=== PATIENT | female | born 1955 | race Asian ===

== ENCOUNTER → 2016-05-15 | Outpatient (CLI) | payer OTHER ==
[2016-05-15 18:14] LABS: ALBUMIN 4.1 GM/DL (3.2-5.2); ALBUMIN/GLOBULIN RATIO 1.03 (1.00-1.93); ALKALINE PHOSPHATASE 106 U/L (45-117); ALT/SGPT 20 U/L (12-78); ANION GAP 10 MEQ/L (8-16); AST/SGOT 21 U/L (15-37); BILIRUBIN,TOTAL 0.6 MG/DL (0.2-1.0); BLOOD UREA NITROGEN 21 MG/DL (7-18); CALCIUM LEVEL 8.8 MG/DL (8.5-10.1); CARBON DIOXIDE LEVEL 26 MEQ/L (21-32); CHLORIDE LEVEL 106 MEQ/L (98-107); CHOLESTEROL LEVEL 183 MG/DL (<200); CREATININE FOR GFR 0.61 MG/DL (0.55-1.02); GLOMERULAR FILTRATION RATE > 60.0 (>51); GLUCOSE, FASTING 98 MG/DL (70-105); POTASSIUM SERUM 4.1 MEQ/L (3.5-5.1); SODIUM LEVEL 142 MEQ/L (136-145); TOTAL PROTEIN 8.1 GM/DL (6.4-8.2); TRIGLYCERIDES LEVEL 249 MG/DL (<150)
[2016-05-15 19:12] LABS: BASO % 0.9 % (0.0-1.0); EOS # 0.1 K/mm3 (0.0-0.50); EOS % 2.4 % (0.0-3.0); LARGE UNSTAINED CELL # 0.2 K/mm3 (0.0-0.4); LYMPH # 1.9 K/mm3 (1.5-4.5); LYMPH % 35.9 % (24.0-44.0); MEAN CORPUSCULAR HEMOGLOBIN 30.2 pg (27.0-33.0); MEAN CORPUSCULAR VOLUME 94.3 fl (80.0-96.0); MONO # 0.3 K/mm3 (0.0-0.8); MONO % 4.8 % (0.0-5.0); NEUTROPHILS # 2.9 K/mm3 (1.8-7.7); PLATELET COUNT, AUTOMATED 294 k/mm3 (150-450); RED CELL DISTRIBUTION WIDTH 12.6 % (11.5-14.5); WHITE BLOOD COUNT 5.4 K/mm3 (4.0-10.0)
== END ==
LOC: M WUC 11:09
PROVIDERS: ATTEND Physician Assistant Medical
DX: E55.9 Vitamin D deficiency, unspecified (principal); I10 Essential (primary) hypertension

== ENCOUNTER → 2016-10-30 | Outpatient (REF) | payer OTHER | LOC: M LAB REF 13:08 | PROVIDERS: ATTEND Physician Assistant Medical | DX: Z12.4 Encounter for screening for malignant neoplasm of cervix (principal) ==

== ENCOUNTER 2017-03-07 13:23 | Day surgery (SDC) | payer OTHER ==
[~2017-03-07] VITALS: Ht 157.5 cm; Wt 63.6 kg
[2017-03-07] MEDS ORDERED: FISH100049 PO (13:33)
[2017-03-07] MEDS ORDERED: ASPI81TA85 PO (13:33)
[2017-03-07] MEDS ORDERED: HYDR25TAB PO (13:33)
[2017-03-07] MEDS ORDERED: VITA1CAP40 PO (13:33)
[2017-03-07] MEDS ORDERED: VALS1TAB47 PO (13:33)
[2017-03-07] MEDS ORDERED: CALC600T57 PO (13:34)
[2017-03-07] MEDS ORDERED: MORPHINE 2 MG/ML 1ML SYRINGE IV ONE (14:00)
[2017-03-07] MEDS ORDERED: ONDANSETRON 4MG/2ML VIAL (J2405) IV ONE (14:00)
[2017-03-07] MEDS ORDERED: NS 1,000 ML IV ONE (14:00)
[2017-03-07 14:44] LABS: BASO % 0.2 % (0.0-1.0); IMMATURE GRANULOCYTE % 0.3 % (0-0); LYMPH # 0.9 10^3/uL (1.5-4.5); LYMPH % 6.3 % (24.0-44.0); MEAN CORPUSCULAR HEMOGLOBIN 30.3 pg (27.0-33.0); MEAN CORPUSCULAR HGB CONC 33.5 g/dl (32.0-36.5); MEAN CORPUSCULAR VOLUME 90.5 fl (80.0-96.0); MONO # 0.4 10^3/uL (0.0-0.8); MONO % 2.5 % (0.0-5.0); NEUTROPHILS # 13.3 10^3/uL (1.8-7.7); NEUTROPHILS % 90.7 % (36.0-66.0); PLATELET COUNT, AUTOMATED 305 10^3/uL (150-450); RED CELL DISTRIBUTION WIDTH 13.1 % (11.5-14.5); WHITE BLOOD COUNT 14.6 10^3/uL (4.0-10.0)
--- NOTE | 2017-03-07 15:01 | REP ---
ACUTE ABDOMINAL SERIES: 03/07/2017 CLINICAL HISTORY: Abdominal pain. FINDINGS: PA CHEST: Comparison 02/27/2003. The lung he are well inflated. There is no infiltrate, effusion, atelectasis or mass. The heart, mediastinal and hilar contours are normal. The airway and aorta are intact. Bony thorax shows no focal lesion. No aortic aneurysm. No free air under the diaphragm. FLAT UPRIGHT ABDOMEN: There is a nonspecific gas pattern without dilated loops, obstruction, mass or free air. Scattered stool and gas in the colon. No dilated small bowel loops. No mass. In the right upper quadrant, superimposed to a posterior 12th rib, overlying some bowel gas and stool, there is a density which could be bowel content, calcification or rib lesion. It also be costal cartilage calcification. Marginal osteophytes and syndesmophytes throughout the lumbar spine. SI joints, sacral ala intact. There is some degenerative changes in the hips. IMPRESSION: 1. Nonspecific gas pattern without obstruction, mass, free air or air-fluid levels. Bones show some degenerative changes spine and hips without acute finding. 2. A possible calcific density in the right upper quadrant at the level of superior endplate of L1 to the right of midline. This calcific density could be in the rib, bowel content, costal cartilage calcification or within the kidney. 3. Degenerative changes hips and spine. Signed by Jonathan John MD 03/07/2017 07:41 P
[2017-03-07 15:11] LABS: ANION GAP 13 MEQ/L (8-16); BLOOD UREA NITROGEN 16 MG/DL (7-18); CALCIUM LEVEL 9.4 MG/DL (8.8-10.2); CARBON DIOXIDE LEVEL 23 MEQ/L (21-32); CHLORIDE LEVEL 103 MEQ/L (98-107); GLOMERULAR FILTRATION RATE > 60.0 (>45); GLUCOSE, FASTING 109 MG/DL (80-110); POTASSIUM SERUM 3.1 MEQ/L (3.5-5.1); SODIUM LEVEL 139 MEQ/L (136-145)
--- NOTE | 2017-03-07 15:53 | REP ---
PELVIC ENDOVAGINAL PROBE ULTRASOUND: 03/07/2017. Clinical history: Left lower quadrant pain. Comparison: 07/29/2007. Findings: Transabdominal images show bladder nearly empty. Endovaginal probe images also performed. The uterus is absent and the vaginal cuff intact without visible mass. There is no fluid in the pelvis nor evidence of adnexal mass or ovarian tissue visible on these images on either side of the pelvis with transabdominal or endovaginal probes. Impression: 1. Status post hysterectomy with the vaginal cuff intact. No pelvic free fluid or mass. No adnexal tissue, mass or visible ovaries on transabdominal and endovaginal probes. Correlate with surgical history. Signed by Jonathan John MD 03/07/2017 07:45 P
--- NOTE | 2017-03-07 17:18 | REP ---
CT of the abdomen pelvis without IV or bowel contrast: There are no comparisons. There are no renal or ureteral calculi. There are no bladder calculi. There is mild left hydronephrosis. There is no hydroureter or perinephric stranding. There is no right hydronephrosis. The visualized lung he are unremarkable. The hepatic parenchyma is homogeneous except for a small cyst. The gallbladder, pancreas and the spleen are unremarkable. The adrenals, abdominal aorta, bowel and mesentery are unremarkable except for occasional sigmoid colon diverticula without diverticulitis. The appendix is elongated and distended measuring up to 10 mm transverse diameter. There are at least for appendicoliths. There is mild periappendiceal phlegmon. Findings are compatible with acute appendicitis. There is no periappendiceal abscess. Pelvis There is a hysterectomy. Vaginal cuff and adnexa are unremarkable. The bladder is unremarkable. There is no adenopathy or ascites. Impression: There is mild left hydronephrosis, however, there are no left renal or ureteral calculi. No bladder calculi. The mild hydronephrosis may be from a UPJ stricture. However, there are findings compatible with acute appendicitis. There are least four appendicoliths, appendiceal distension and mild periappendiceal phlegmon. Signed by Sammy Wesley MD 03/07/2017 05:10 P
[2017-03-07] MEDS ORDERED: ASPI1TAB PO (17:54)
[2017-03-07] MEDS ORDERED: VITA100066 PO (18:02)
[2017-03-07] MEDS ORDERED: BUPIVACAINE/EPIN 0.5% 30 ML VIAL As Ordered ONE (18:12)
[2017-03-07] MEDS ORDERED: ZOSYN 3.375 GM VIAL (J2543) As Ordered ONE (18:12)
[2017-03-07] MEDS: LR 1,000 ML IV SCH (18:26)
[2017-03-07] MEDS ORDERED: ONDANSETRON 4MG/2ML VIAL (J2405) IV PRN ×2 (18:30→19:30)
[2017-03-07] MEDS ORDERED: ACETAMINOPHEN TAB 650MG DOSE (2X325MG) PO PRN (18:30)
[2017-03-07] MEDS ORDERED: MORPHINE 2 MG/ML 1ML SYRINGE IV PRN (18:30)
[2017-03-07] MEDS ORDERED: NORCO, ANEXSIA 5/325MG TABLET (HYDROcodone/ACETAMINOPHEN) PO PRN (18:30)
[2017-03-07] MEDS ORDERED: KETOROLAC 30 MG/ML VIAL (J1885) IV PRN (18:30)
[2017-03-07] MEDS ORDERED: ROCURONIUM BROMIDE 50 MG/5 ML VIAL As Ordered ONE (18:52)
[2017-03-07] MEDS ORDERED: NEOSTIGMINE 10 MG/10 ML VIAL (J2710) As Ordered ONE (18:52)
[2017-03-07] MEDS ORDERED: LIDOCAINE 2% INJ 100 MG/5 ML SDV (FOR ANES.) As Ordered ONE (18:52)
[2017-03-07] MEDS ORDERED: fentaNYL 250 MCG/5 ML INJECTION (J3010) As Ordered ONE (18:52)
[2017-03-07] MEDS ORDERED: dexameTHASONE 4 MG/ML 1ML VIAL (J1100) As Ordered ONE (18:52)
[2017-03-07] MEDS ORDERED: KETOROLAC 60 MG/2 ML VIAL (J1885) As Ordered ONE (18:52)
[2017-03-07] MEDS ORDERED: SUCCINYLCHOLINE 100 MG/5 ML SYRINGE (J0330) As Ordered ONE (18:52)
[2017-03-07] MEDS ORDERED: PROPOFOL 200 MG/20 ML VIAL As Ordered ONE (18:52)
[2017-03-07] MEDS ORDERED: GLYCOPYRROLATE INJ 0.2 MG/ML 2 ML VIAL As Ordered ONE (18:52)
[2017-03-07] MEDS ORDERED: MIDAZOLAM INJ 2 MG/2 ML VIAL (J2250) As Ordered ONE (18:52)
[2017-03-07] MEDS ORDERED: ONDANSETRON 4MG/2ML VIAL (J2405) As Ordered ONE (18:52)
[2017-03-07] MEDS ORDERED: PHENYLephrine HCL 500 MCG/5 ML (100MCG/ML) SYRINGE (J2370) As Ordered ONE (18:55)
--- NOTE | 2017-03-07 19:00 | HPE ---
DATE OF ADMISSION: 03/07/2017 CHIEF COMPLAINT: Right lower quadrant pain. HISTORY OF PRESENT ILLNESS: The patient is a 57-year-old female who developed sudden onset of left lower quadrant abdominal pain early this morning. The pain started to move over towards the right side in the afternoon. She went to her primary around 1:00 this afternoon. Once she was there, they felt that she should be seen in the emergency room so they sent her to the emergency room. In the ER she had a CT done which showed signs of a dilated thickened appendix with surrounding phlegmon formation as well as some appendicoliths within it. She also had a slightly elevated white count up to over 14,000, so I was called to evaluate. She claims a little bit of dry heaving, no other emesis. No fevers reported. No recent travel or trauma. No recent illnesses. PAST MEDICAL HISTORY: Positive for hypertension. PAST SURGICAL HISTORY: Hysterectomy. ALLERGIES: None. HOME MEDICATIONS: - valsartan - hydrochlorothiazide - [id number] baby aspirin - vitamin D and calcium SOCIAL HISTORY: Denies drug, alcohol, tobacco abuse. FAMILY HISTORY: Noncontributory. REVIEW OF SYSTEMS: Pertinent positives negative except as stated in the HPI. PHYSICAL EXAMINATION: General: Alert and oriented times three. No acute stress. Vitals: Temperature 98.8, pulse 95, respirations 16, blood pressure 156/88, pulse oximetry 100% on room air. HEENT: Pupils equal round react to light and accommodation. Heart: S1, S2 regular rate and rhythm, Lungs clear to auscultation bilaterally. Abdomen: Soft, tender to palpation right lower quadrant. Localized guarding, no rebounding or rigidity. Bowel sounds positive. Extremities: No clubbing, cyanosis or edema. LABORATORY DATA: White count 14.6, hemoglobin 13.7, platelets 305, potassium 3.1, creatinine 0.6. IMAGING STUDIES: CT abdomen and pelvis shows mild left hydronephrosis. However, no signs of left renal or ureteral calculi. No bladder calculi. There is also signs of acute appendicitis with elongated and dilated appendix up to 10 mm in diameter with at least four appendicoliths within it with some mild periappendiceal phlegmon formation. No signs of periappendiceal abscess. ASSESSMENT/PLAN: The patient is 63-year-old female with signs and symptoms consistent with acute appendicitis. Recommendation to proceed with laparoscopic, possible open appendectomy. Risks, benefits of procedure not limited to but including bleeding, infection, hernia formation, damage to surrounding structures, need further surgery were discussed in detail with the patient and informed consent was obtained and procedure was planned urgently for this evening. Postoperatively she will be kept in the hospital on the floor to monitor for fevers and elevated white count overnight. As long as the appendix is not perforated and she is afebrile for 24 hours then she will be discharged home to followup with me postoperatively.
[2017-03-07] MEDS ORDERED: LR 1,000 ML IV SCH (19:30)
[2017-03-07] MEDS ORDERED: PERCOCET 5MG/325MG TAB PO PRN (19:30)
[2017-03-07] MEDS ORDERED: fentaNYL 100 MCG/2 ML INJECTION (J3010) IV PRN (19:30)
[2017-03-07 20:30] VITALS: BP 134/81
[2017-03-07 21:00] VITALS: BP 131/79
[2017-03-07] MEDS: HEPARIN SOD (PORCINE) 5000 UNITS/ML VIAL SC SCH (21:11)
[2017-03-07] MEDS: SENOKOT S TAB PO SCH (21:11)
[2017-03-07 22:00] VITALS: BP 122/74
[2017-03-07 23:00] VITALS: BP 109/69
[2017-03-07] MEDS: PIPERACILLIN/TAZOBACTAM SOD 3.375 GM in APPROPRIATE DILUENT 1 EA IV SCH (23:34)
[2017-03-08] VITALS: BP 102/63
[2017-03-08 01:00] VITALS: BP 101/64
[2017-03-08] MEDS: LR 1,000 ML IV SCH (01:31)
[2017-03-08 04:00] VITALS: BP 95/61
[2017-03-08] MEDS: PIPERACILLIN/TAZOBACTAM SOD 3.375 GM in APPROPRIATE DILUENT 1 EA IV SCH (05:27)
[2017-03-08] MEDS: HEPARIN SOD (PORCINE) 5000 UNITS/ML VIAL SC SCH (05:27)
[2017-03-08 07:50] LABS: MEAN CORPUSCULAR HEMOGLOBIN 31.1 pg (27.0-33.0); MEAN CORPUSCULAR HGB CONC 34.4 g/dl (32.0-36.5); MEAN CORPUSCULAR VOLUME 90.4 fl (80.0-96.0); PLATELET COUNT, AUTOMATED 258 10^3/uL (150-450); RED CELL DISTRIBUTION WIDTH 13.1 % (11.5-14.5); WHITE BLOOD COUNT 11.3 10^3/uL (4.0-10.0)
[2017-03-08 08:00] VITALS: BP 107/64
[2017-03-08 08:09] VITALS: BP 107/64
[2017-03-08] MEDS: SENOKOT S TAB PO SCH (08:09)
[2017-03-08 08:19] LABS: ANION GAP 11 MEQ/L (8-16); BLOOD UREA NITROGEN 13 MG/DL (7-18); CALCIUM LEVEL 8.4 MG/DL (8.8-10.2); CARBON DIOXIDE LEVEL 23 MEQ/L (21-32); CHLORIDE LEVEL 107 MEQ/L (98-107); CREATININE FOR GFR 0.62 MG/DL (0.55-1.02); GLOMERULAR FILTRATION RATE > 60.0 (>45); GLUCOSE, FASTING 135 MG/DL (80-110); POTASSIUM SERUM 3.6 MEQ/L (3.5-5.1); SODIUM LEVEL 141 MEQ/L (136-145)
[2017-03-08] MEDS ORDERED: NORCOTAB PO (08:42)
[2017-03-08] MEDS ORDERED: VALSARTAN 80 MG TAB (DIOVAN) PO SCH (09:00)
[2017-03-08] MEDS ORDERED: hydroCHLOROthiazide 25 MG TAB PO SCH (09:00)
--- NOTE | 2017-03-08 19:02 | DSES ---
DATE OF ADMISSION: 03/07/2017 DATE OF DISCHARGE: 03/08/2017 ADMISSION DIAGNOSIS: Acute appendicitis. DISCHARGE DIAGNOSIS: Acute appendicitis. HOSPITAL COURSE: Patient is a 61-year-old female who presented to the emergency room on March 07 with signs of acute appendicitis. She was taken the operating room for urgent appendectomy last evening. Postoperatively she was doing well. Her abdominal pain was significantly improved immediately postoperative. She had no problems with nausea, vomiting, fevers, or chills overnight. She has been up ambulating in the halls and urinating appropriately, tolerating diet. This morning her labs are improving. She has been afebrile. PLAN: Discharge home today just with a pain pill. She will followup me in the office in 2 weeks. Okay to shower when she returns home. No soaking her incisions for 5 days. No lifting, pushing, or pulling more than 20 pounds for the next 2 weeks. All questions were answered, and she has our office number to call if she has any other questions.
--- NOTE | 2017-03-09 09:08 | RO ---
DATE OF PROCEDURE: 03/07/2017 PREOPERATIVE DIAGNOSIS: Acute appendicitis. POSTOPERATIVE DIAGNOSIS: Acute appendicitis. PROCEDURE: Laparoscopic appendectomy. SURGEON: Sammy Crooks DO AUTO PORTER: None. ANESTHESIA: General. ESTIMATED BLOOD LOSS: 5 mL. COMPLICATIONS: None. INDICATIONS FOR PROCEDURE: Patient is a 61-year-old female who presented to the emergency room with sudden onset of abdominal pain that occurred this morning. The pain was in the right lower quadrant. She came to emergency room and was found to have an elevated white count, over 14,000, as well as a CT findings consistent with acute appendicitis. Recommendation was to proceed with laparoscopic possible open appendectomy. Risks and benefits of the procedure, not limited but including bleeding, infection, hernia formation, damage to surrounding structures, need for further surgery, were discussed in detail with the patient. Informed consent was obtained and procedure was planned. PROCEDURE: Patient was brought back to operating room 3. After sufficient sedation the abdomen was sterilely prepped and draped. Next, a time out was done to confirm proper patient and proper procedure. Following that, a 5 mm incision was made in the left upper quadrant, Veress needle inserted and the abdomen was insufflated to 15 mmHg. Next, a 5 mm OptiView port was used to gain access to the abdomen in the left upper then an 8 mm port placed supraumbilically and another 5 mm port midline suprapubically. Next, the omentum was moved off of the cecum. The appendix was easily identified. This was able to be elevated up in the air. The mesoappendix was carefully taken down using the ENSEAL until the base the appendix was reached. Once the base the appendix was reached it was ligated twice with PDS Endoloops and then amputated using he ENSEAL. The appendix then brought out through a 5 mm EndoCatch bag through the 8 mm port site. The abdomen was then examined one last time to confirm hemostasis. The abdomen was then desufflated. Skin incisions were closed with #4-0 Vicryl subcuticular sutures. The abdomen was cleaned and dried. Steri-Strips, 4x4 and tape were applied thus ending procedure. Dictation
== END 2017-03-08 10:05 | disposition home or self-care (01) ==
LOC: M ED 13:23 → M ED INP 17:45 → UNDOADMIN 17:45 → M SDC 18:00 → M PED 20:30 → M ED INP 20:30 → M PED 21:07 → M SDC 03-08 10:05 → UNDODISIN 03-08 10:05
PROVIDERS: ATTEND Surgery
DX: K35.80 Unspecified acute appendicitis (principal); I10 Essential (primary) hypertension; Z79.899 Other long term (current) drug therapy; Z79.82 Long term (current) use of aspirin; Z87.891 Personal history of nicotine dependence
CPT/HCPCS: 36415; 44970; 74022; 74176; 76830; 76856; 80048; 81001; 85025; 85027; 88304; 96361; 96365; 96372; 96375; 96376; 99284; J0330; J1100; J1885; J2250; J2370; J2405; J2543; J2710; J3010

== ENCOUNTER → 2017-05-16 | Outpatient (CLI) | payer OTHER ==
[2017-05-16 14:21] LABS: ANION GAP 10 MEQ/L (8-16); BLOOD UREA NITROGEN 19 MG/DL (7-18); CALCIUM LEVEL 9.1 MG/DL (8.8-10.2); CARBON DIOXIDE LEVEL 27 MEQ/L (21-32); CHLORIDE LEVEL 106 MEQ/L (98-107); CHOLESTEROL LEVEL 175 MG/DL (<200); CHOLESTEROL RISK RATIO 3.181 (<5); CREATININE FOR GFR 0.55 MG/DL (0.55-1.30); GLOMERULAR FILTRATION RATE > 60.0 (>45); GLUCOSE, FASTING 95 MG/DL (70-100); HDL CHOLESTEROL 55 MG/DL (>40); NON-HDL-C 120 MG/DL; SODIUM LEVEL 143 MEQ/L (136-145); TRIGLYCERIDES LEVEL 130 MG/DL (<150)
[2017-05-16 14:29] LABS: TOTAL 25(OH) VITAMIN D 80.1 NG/ML (30.0-100.0)
== END ==
LOC: M WUC 09:25
DX: I10 Essential (primary) hypertension (principal); E55.9 Vitamin D deficiency, unspecified

== ENCOUNTER → 2017-09-13 | Outpatient (REF) | payer OTHER ==
[2017-09-19 10:36] LABS: HPV LOW VOL RFLX Negative (Negative)
== END ==
LOC: M LAB REF 13:28
DX: Z01.419 Encounter for gynecological examination (general) (routine) without abnormal findings (principal)

== ENCOUNTER 2017-09-17 13:27 | Emergency (ER) | payer OTHER | END 2017-09-17 16:08 | disposition home or self-care (01) | LOC: M ED 13:27 | DX: Z04.1 Encounter for examination and observation following transport accident (principal); S20.312A Abrasion of left front wall of thorax, initial encounter; V43.52XA Car driver injured in collision with other type car in traffic accident, initial encounter; Y92.410 Unspecified street and highway as the place of occurrence of the external cause; Z88.8 Allergy status to other drugs, medicaments and biological substances; Z79.82 Long term (current) use of aspirin; Z79.899 Other long term (current) drug therapy | CPT/HCPCS: 71046 ==

== ENCOUNTER → 2018-04-19 | Outpatient (CLI) | payer OTHER ==
[~2018-04-19] MED LIST: ASPI1TAB PO; ASPI81TA85 PO; CALC600T57 PO; FISH100049 PO; HYDR25TAB PO; NORCOTAB PO; VALS1TAB47 PO; VITA100066 PO; VITA50005 PO
[2018-04-19 13:54] LABS: BASO % 0.5 % (0.0-1.0); EOS # 0.1 10^3/uL (0.0-0.50); EOS % 2.2 % (0.0-3.0); HEMATOCRIT 41.8 % (36.0-47.0); HEMOGLOBIN 13.4 g/dl (12.0-15.5); LYMPH # 2.4 10^3/uL (1.5-4.5); MEAN CORPUSCULAR HEMOGLOBIN 29.8 pg (27.0-33.0); MEAN CORPUSCULAR HGB CONC 32.1 g/dl (32.0-36.5); MEAN CORPUSCULAR VOLUME 92.9 fl (80.0-96.0); MONO # 0.3 10^3/uL (0.0-0.8); MONO % 4.5 % (0.0-5.0); NEUTROPHILS # 2.8 10^3/uL (1.8-7.7); NEUTROPHILS % 49.6 % (36.0-66.0); PLATELET COUNT, AUTOMATED 262 10^3/uL (150-450); WHITE BLOOD COUNT 5.6 10^3/uL (4.0-10.0)
[2018-04-19 14:23] LABS: ALBUMIN 3.5 GM/DL (3.2-5.2); ALT/SGPT 21 U/L (12-78); BILIRUBIN,TOTAL 0.4 MG/DL (0.2-1.0); BLOOD UREA NITROGEN 15 MG/DL (7-18); CALCIUM LEVEL 9.1 MG/DL (8.8-10.2); CARBON DIOXIDE LEVEL 25 MEQ/L (21-32); CHLORIDE LEVEL 106 MEQ/L (98-107); CHOLESTEROL LEVEL 161 MG/DL (<200); CHOLESTEROL RISK RATIO 3.156 (<5); GLOMERULAR FILTRATION RATE > 60.0 (>45); GLUCOSE, FASTING 87 MG/DL (70-100); HDL CHOLESTEROL 51 MG/DL (>40); LDL CHOLESTEROL 82 MG/DL (<100); NON-HDL-C 110 MG/DL; POTASSIUM SERUM 4.3 MEQ/L (3.5-5.1); SODIUM LEVEL 142 MEQ/L (136-145); TOTAL PROTEIN 7.4 GM/DL (6.4-8.2); TRIGLYCERIDES LEVEL 142 MG/DL (<150)
== END ==
LOC: M WUC 10:34
PROVIDERS: ATTEND Physician Assistant Medical
DX: I10 Essential (primary) hypertension (principal)

== ENCOUNTER → 2018-10-10 | Outpatient (REF) | payer OTHER ==
[~2018-10-10] MED LIST changes: -ASPI1TAB PO; +ASPI81TA26 PO; +HYDR-3715 PO; -NORCOTAB PO; -VALS1TAB47 PO; +VALS1TAB67 PO
[2018-10-16 14:07] LABS: HPV LOW VOL RFLX Negative (Negative)
== END ==
LOC: M LAB REF 13:28
PROVIDERS: ATTEND Physician Assistant Medical
DX: C53.8 Malignant neoplasm of overlapping sites of cervix uteri (principal)

== ENCOUNTER 2020-03-13 16:09 | Inpatient (IN) | payer OTHER ==
[~2020-03-13] VITALS: Ht 162.6 cm; Wt 63.5 kg
[~2020-03-13 16:09] MED LIST changes: -ASPI81TA85 PO; +ASPI81TA86 PO
--- NOTE | 2020-03-13 17:10 | REP ---
INDICATION: Coronavirus workup. COMPARISON: 09/17/2017. TECHNIQUE: SINGLE PORTABLE AP VIEW OF THE CHEST WAS PERFORMED. FINDINGS: There are patchy peripheral infiltrates bilaterally, more so in the lung bases.The heart is not enlarged. There is some calcification and ectasia of the thoracic aorta. Mediastinal silhouette otherwise appears unremarkable. IMPRESSION: Patchy peripheral infiltrates bilaterally.This distribution would be typical for coronavirus. Correlate clinically. <Electronically signed by Sammy Hernandez > 03/13/20 [id number]
[2020-03-13 17:14] LABS: BASO % 0.2 % (0.0-1.0); HEMATOCRIT 42.8 % (36.0-47.0); HEMOGLOBIN 14.3 g/dl (12.0-15.5); LYMPH # 1.2 10^3/uL (1.5-5.0); MEAN CORPUSCULAR HEMOGLOBIN 28.5 pg (27.0-33.0); MEAN CORPUSCULAR HGB CONC 33.4 g/dl (32.0-36.5); MEAN CORPUSCULAR VOLUME 85.4 fl (80.0-96.0); MONO # 0.5 10^3/uL (0.0-0.8); MONO % 5.6 % (0.0-5.0); NEUTROPHILS # 6.8 10^3/uL (1.5-8.5); NEUTROPHILS % 79.6 % (36.0-66.0); PLATELET COUNT, AUTOMATED 457 10^3/uL (150-450); RED BLOOD COUNT 5.01 10^6/uL (4.00-5.40); WHITE BLOOD COUNT 8.5 10^3/uL (4.0-10.0)
[2020-03-13] MEDS ORDERED: NS 1,000 ML IV SCH (17:30)
[2020-03-13 17:31] LABS: INR 1.02; PARTIAL THROMBOPLASTIN TIME 32.6 SECONDS (24.2-38.5); PROTHROMBIN TIME 13.6 SECONDS (12.5-14.3)
[2020-03-13 17:34] LABS: D-DIMER QUANT 1174.45 ng/ml (<500)
[2020-03-13] MEDS ORDERED: FISH1CAP26 PO (17:38)
[2020-03-13 17:41] LABS: ALBUMIN 3.3 GM/DL (3.2-5.2); ALT/SGPT 69 U/L (12-78); BILIRUBIN,TOTAL 1.1 MG/DL (0.2-1.0); BLOOD UREA NITROGEN 24 MG/DL (7-18); CALCIUM LEVEL 8.6 MG/DL (8.8-10.2); CARBON DIOXIDE LEVEL 24 MEQ/L (21-32); CHLORIDE LEVEL 93 MEQ/L (98-107); CPK CREATINE PHOSPHOKINASE 180 U/L (26-192); CREATININE FOR GFR 0.83 MG/DL (0.55-1.30); GLOMERULAR FILTRATION RATE > 60.0 (>45); GLUCOSE, FASTING 140 MG/DL (70-100); LDH LACTATE DEHYDROGENASE 716 U/L (84-246); MAGNESIUM LEVEL 2.9 MG/DL (1.8-2.4); MB/CK RELATIVE INDEX 0.56 (< OR =4); POTASSIUM SERUM 3.7 MEQ/L (3.5-5.1); SODIUM LEVEL 128 MEQ/L (136-145); TOTAL PROTEIN 8.2 GM/DL (6.4-8.2); TROPONIN I < 0.02 NG/ML (< 0.10)
[2020-03-13 17:42] LABS: FERRITIN 865 NG/ML (8-252)
--- NOTE | 2020-03-13 17:58 | ECGEPIP ---
[facility] - ED Test Date: 2020-03-13 Pat Name: MELO TOMAS Department: Room: - Gender: Female Alterations Sewer: luis fernando : 1955 Requested By: Estela Ramírez Order Number: [id number] Reading MD: Estela Ramírez Measurements Intervals [place] Rate: 96 P: 35 NE: 190 QRS: -13 QRSD: 96 T: 12 QT: 348 QTc: 442 Interpretive Statements SINUS RHYTHM MINIMAL VOLTAGE CRITERIA FOR LVH, CONSIDER NORMAL VARIANT NONSPECIFIC T-WAVE ABNORMALITY similar 09/17/17 Electronically Signed on 03-13-2020 17:57:55 EST by Estela Ramírez
--- NOTE | 2020-03-13 19:08 | HPEPDOC ---
[facility] Medical History & Physical Date of Admission Mar 13, 2020 Date of Service: Mar 13, 2020 Attending Physician: KATARINA LORA DO History and Physical CHIEF COMPLAINT: Cough, shortness of breath HISTORY OF PRESENT ILLNESS: Patient reports that she has been sick for approximately 1 week. She has not had any fevers, chills, and reports that she ultimately does not feel ill, but rather has just been suffering from cough for the last 5-7 days, and then just today she was feeling more short of breath, therefore she went to urgent care. She was tested and found to be COVID-19 positive, and sent to the ER for further evaluation. Chest x-ray in the ER reveals patchy peripheral infiltrates bilaterally consistent with COVID-19 infection. CODE STATUS: Full code PAST MEDICAL HISTORY: Hypertension PAST SURGICAL HISTORY: Hysterectomy Appendectomy SOCIAL HISTORY: Quit smoking over 30 years ago. Does not drink alcohol. Does not use recreational drugs. FAMILY HISTORY: Noncontributory REVIEW OF SYSTEMS: Constitutional: Patient denies fevers, chills, night sweats, recent weight gain/loss. HEENT: Patient denies postnasal drip, epistaxis, sore throat, difficulty chewing or swallowing food. Cardiovascular: Patient denies chest discomfort/pain, palpitations, orthopnea, edema of the extremities, claudication. Respiratory: Patient admits to dyspnea, nonproductive cough. Denies wheezing, hemoptysis, sputum production. Gastrointestinal: Patient denies nausea, vomiting, diarrhea, constipation, abdominal pain, melena, hematochezia, hematemesis, jaundice. PHYSICAL EXAMINATION: General: Awake, alert, oriented 3. She does not appear to be in any acute distress at this time. She is wearing nasal cannula. HEENT: Head normocephalic atraumatic, conjunctiva are pink, sclera are nonicteric. Hearing is grossly intact to conversation. Respiratory: Fine crackles noted at the bases, otherwise clear in the remaining lung he Cardiovascular: Regular rate and rhythm, with no rubs, gallops, or murmur. Abdomen: Soft, nontender, nondistended, no hepatosplenomegaly appreciated. Bowel sounds present. Extremities: 2+ pulses in the radial and dorsalis pedis bilaterally. No evidence of clubbing or cyanosis. ELECTROCARDIOGRAM: Sinus rhythm IMAGING: Chest x-ray in the ER reveals patchy peripheral infiltrates bilaterally consistent with COVID-19 infection. ASSESSMENT/PLAN: -COVID-19 pneumonia Risk factors include age over 60, elevated LDH, elevated CRP. She has no past history of cardiac or lung disease. She does qualify for sepsis criteria based on tachycardia, tachypnea, and a known source of infection. Qsofa score is 1, based on respiratory rate greater than 22, therefore she is not high risk. Fluid resuscitation with normal saline. Will hold off on empiric antibiotics given mild presentation. Oxygen saturation was 80% on room air on presentation, however she is now satting in the high 90s on 6 L nasal cannula. Will administer dexamethasone 6 mg IV daily, but at this point will hold off on resdemivir. Will admit to 4 Doll. Anticipate greater than 2 midnight's stay. -Hypertension Currently within acceptable limits, continue home dose of valsartan and hydrochlorothiazide. She does not have a documented history of coronary artery disease but she is on 81 mg of aspirin and fish oil at home, will continue her home dose of both of these as well. -DVT prophylaxis Lovenox Vital Signs Vital Signs Date Time Temp Pulse Resp B/P (MAP) Pulse Ox O2 Delivery O2 Flow Rate FiO2 03/13/20 17:09 03/13/20 16:10 99.6 101 24 80 Room Air Laboratory Data Labs 24H Laboratory Tests 2 03/13/20 17:00: Immature Granulocyte % (Auto) 0.6, Neutrophils (%) (Auto) 79.6H, Lymphocytes (%) (Auto) 14.0L, Monocytes (%) (Auto) 5.6H, Eosinophils (%) (Auto) 0.0, Basophils (%) (Auto) 0.2, Neutrophils # (Auto) 6.8, Lymphocytes # (Auto) 1.2L, Monocytes # (Auto) 0.5, Eosinophils # (Auto) 0.0, Basophils # (Auto) 0.0, Nucleated Red Blood Cells % (auto) 0.0, Prothrombin Time 13.6, Prothromb Time International R atio 1.02, Activated Partial Thromboplast Time 32.6, Fibrinogen 707H, D-Dimer, Quantitative 1174.45H, Anion Gap 11, Glomerular Filtration Rate > 60.0, Lactic Acid Level 2.5*H, Calcium Level 8.6L, Magnesium Level 2.9H, Ferritin 865H, Total Bilirubin 1.1H, Aspartate Amino Transf (AST/SGOT) 85H, Alanine Aminotransferase (ALT/SGPT) 69, Alkaline Phosphatase 231H, Lactate Dehydrogenase 716H, Total Creatine Kinase 180, Creatine Kinase MB 1.0, Creatine Kinase MB Relative Index 0.56, Troponin I < 0.02, C-Reactive Protein, Quantitative 16.10H, Total Protein 8.2, Albumin 3.3, Albumin/Globulin Ratio 0.7L 03/13/20 17:03: POC pH (Misc Panel) 7.461H, POC Base Excess (Misc Panel) -4.0L, POC Saturated Percent O2 (Misc) 94L, POC pO2 (Misc Panel) 64.0L, POC pCO2 (Misc Panel) 28.0L, POC HCO3 (Misc Panel) 20.0L, POC Total CO2 (Misc Panel) 21.0L CBC/BMP Laboratory Tests 03/13/20 17:00 Microbiology Microbiology 03/13/20 Blood Culture, Received Pending Home Medications Scheduled Aspirin (Aspirin EC) 81 Mg Tab, 81 MG PO DAILY Calcium Carbonate/Vitamin D3 (Calcium 600-Vit D3 200 Tablet) 1 Tab Tab, 1 TAB PO DAILY Hydrochlorothiazide (Hydrochlorothiazide) 25 Mg Tab, 25 MG PO DAILY [place] 3 Polyunsat Fatty Acids (Fish Oil 1,000 mg Softgel) 1,000 Mg Capsule, 1,000 MG PO DAILY Valsartan (Valsartan) 160 Mg Tab, 240 MG PO DAILY Allergies Coded Allergies: lisinopril (Verified Allergy, Unknown, 03/13/20) A-FIB/CHADSVASC A-FIB History Current/History of A-Fib/PAF?: No Current PO Anticoag Therapy: KATARINA Sosa DO Mar 13, 2020 19:07
[2020-03-13] MEDS ORDERED: dexameTHASONE 20MG/5ML VIAL (J1100 PER 1MG) IV ONE (20:30)
[2020-03-14] VITALS (23 sets, daily range): BP systolic 74–130; BP diastolic 50–83; O2SAT 91–96
[2020-03-14 05:52] LABS: BASO % 0.2 % (0.0-1.0); HEMATOCRIT 39.5 % (36.0-47.0); HEMOGLOBIN 13.1 g/dl (12.0-15.5); LYMPH # 0.6 10^3/uL (1.5-5.0); LYMPH % 10.8 % (24.0-44.0); MEAN CORPUSCULAR HEMOGLOBIN 28.4 pg (27.0-33.0); MEAN CORPUSCULAR HGB CONC 33.2 g/dl (32.0-36.5); MEAN CORPUSCULAR VOLUME 85.7 fl (80.0-96.0); MONO # 0.1 10^3/uL (0.0-0.8); NEUTROPHILS # 4.4 10^3/uL (1.5-8.5); NEUTROPHILS % 86.4 % (36.0-66.0); PLATELET COUNT, AUTOMATED 446 10^3/uL (150-450); RED BLOOD COUNT 4.61 10^6/uL (4.00-5.40); WHITE BLOOD COUNT 5.1 10^3/uL (4.0-10.0)
[2020-03-14 06:02] LABS: INR 1.03; PROTHROMBIN TIME 13.7 SECONDS (12.5-14.3)
[2020-03-14 06:03] LABS: PARTIAL THROMBOPLASTIN TIME 34.1 SECONDS (24.2-38.5)
[2020-03-14 06:15] LABS: ALBUMIN 2.7 GM/DL (3.2-5.2); ALT/SGPT 53 U/L (12-78); BILIRUBIN,DIRECT 0.4 MG/DL (0.0-0.2); BILIRUBIN,TOTAL 0.8 MG/DL (0.2-1.0); BLOOD UREA NITROGEN 20 MG/DL (7-18); CALCIUM LEVEL 8.2 MG/DL (8.8-10.2); CARBON DIOXIDE LEVEL 24 MEQ/L (21-32); CHLORIDE LEVEL 99 MEQ/L (98-107); CREATININE FOR GFR 0.69 MG/DL (0.55-1.30); FERRITIN 707 NG/ML (8-252); GLOMERULAR FILTRATION RATE > 60.0 (>45); GLUCOSE, FASTING 166 MG/DL (70-100); NT-PRO BNP 86 PG/ML (<125); POTASSIUM SERUM 4.1 MEQ/L (3.5-5.1); SODIUM LEVEL 133 MEQ/L (136-145); TOTAL PROTEIN 7.1 GM/DL (6.4-8.2); TROPONIN I < 0.02 NG/ML (< 0.10)
[2020-03-14] MEDS: ASPIRIN 81 MG ENTERIC TAB PO SCH (08:25)
[2020-03-14] MEDS: dexameTHASONE 20MG/5ML VIAL (J1100 PER 1MG) IV SCH (08:25)
[2020-03-14] MEDS ORDERED: SODIUM CHLORIDE 0.9% INJ 10 ML SYR IV ONE (08:30)
[2020-03-14] MEDS: OMEGA-3 1000MG CAPSULE PO SCH (08:31)
[2020-03-14] MEDS ORDERED: hydroCHLOROthiazide 25 MG TAB PO SCH (09:00)
[2020-03-14] MEDS ORDERED: ENOXAPARIN 100MG/1ML SYRINGE (J1650 PER 10MG) SC SCH (09:00)
[2020-03-14] MEDS ORDERED: VALSARTAN 80 MG TAB (DIOVAN) PO SCH (09:00)
[2020-03-14] MEDS ORDERED: ASPIRIN 81 MG ENTERIC TAB PO SCH (09:00)
[2020-03-14] MEDS: LR 1,000 ML IV SCH (10:00)
[2020-03-14] MEDS ORDERED: GLUCOSE 4GM CHEW TABLET PO PRN (11:45)
[2020-03-14] MEDS ORDERED: GLUCAGON INJ 1MG VIAL SC PRN (11:45)
[2020-03-14] MEDS ORDERED: DEXTROSE 50% 50 ML SYRINGE IV PRN (11:45)
[2020-03-14] MEDS ORDERED: TOCILIZUMAB IV ONE (12:00)
[2020-03-14] MEDS ORDERED: NS IV ONE (12:00)
[2020-03-14] MEDS: ENOXAPARIN 30MG/0.3ML SYRINGE (J1650 PER 10MG) SC SCH ×2 (12:14→20:02)
[2020-03-14] MEDS: HumaLOG INSULIN (NovoLOG) PER UNIT SC SCH ×3 (12:15→20:30)
[2020-03-14] MEDS: PANTOPRAZOLE 40MG VIAL (C9113 PER 1) IV SCH (12:16)
--- NOTE | 2020-03-14 15:51 | CCN ---
CRITICAL CARE NOTE DATE: 03/14/2020 SUBJECTIVE: I was called to the intensive care unit to evaluate this 64-year-old woman who was admitted to the hospital yesterday with a seven day illness. No fever or chills, but progressively increasing cough and shortness of breath. She was tested and found positive for COVID. Her chest x-ray shows diffuse bilateral infiltrates. She was given dexamethasone. Over the course of the night, her oxygen saturations have fallen and her oxygen requirement has increased. She is now on a maximal dose of oxygen with Vapotherm. In the intensive care unit, she is tachycardic with borderline saturations. OBJECTIVE: VITAL SIGNS: At bedside, her temperature is 97, pulse rate 95, respirations 30, blood pressure 114/70, oxygen saturation 88% on 40 liters Vapotherm. HEENT: Her mucosa is pink and moist. NECK: Supple without meningismus. HEART: Regular. LUNGS: Breath sounds diffuse crepitants. ABDOMEN: Benign. EXTREMITIES: Pulses x4. DIAGNOSTIC STUDIES: Reviewed. Her sodium is 133, potassium 4.1, chloride 99, CO2 of 24, BUN 20, creatinine 0.69, glucose 166. The lactic acid was 2.5. Subsequent lactic acid 1.2. Calcium is 8.2, magnesium is 3, ferritin 707. Total bilirubin 0.8, direct bilirubin 0.4, AST up slightly at 52, ALT is 53, alkaline phosphatase 206. The C-reactive protein is 14.5. Albumin 2.7. Her CBC shows a white count of 5.1, hemoglobin 13.1, hematocrit 39.5, platelet count 446,000. Differential white cell count shows 86% neutrophils. PT is 13, PTT 34. Fibrinogen level 751. D-dimer 1097. Chest imaging was reviewed and shows diffuse bilateral interstitial infiltrates. ASSESSMENT/PLAN: The primary problem requiring critical attention is hypoxic respiratory failure secondary to COVID pneumonia. We will adjust the dose of Lovenox to a weight-based protocol given the risk of hypercoagulability and the significantly elevated D-dimer. We will begin remdesivir antiviral therapy. Given the progressive decline in gas exchange, will initiate noninvasive positive pressure ventilation and follow gas exchange. The patient will be placed in a prone position. We will trend the inflammatory markers and give an initial dose of tocilizumab. Chest x-rays will be followed in the morning or earlier if symptoms continue to decline. The patient's condition is quite critical. Prognosis is guarded. I reviewed the case with the attending provider and ICU staff. One hour and 52 minutes was spent in the provision of bedside critical care and coordination exclusive of any procedure time.
--- NOTE | 2020-03-14 15:51 | IPN ---
ICU PROGRESS NOTE DATE: 03/14/2020 SUBJECTIVE: She was transferred to the Intensive Care Unit around 6 o'clock this morning for respiratory distress. O2 saturations fell into the 80s and did not respond to increased oxygenation. She was admitted with COVID pneumonia but initially to general medical floor, transferred to the ICU. She is currently on dexamethasone 6 mg IV daily and started on Remdesivir upon transfer. Critical Care has been consulted this morning. PHYSICAL EXAMINATION: VITAL SIGNS: Blood pressure 92/61, O2 saturation 91% on Vapotherm. Last temperature recorded was 98.8. GENERAL APPEARANCE: She is lying prone in no respiratory distress. She was resting comfortably. O2 saturation was 92% when I saw her. She is alert and conversant. LUNGS: Scattered rhonchi and wheezes. HEART: Regular rhythm. ABDOMEN: Soft, nontender. EXTREMITIES: No peripheral edema. LABORATORY MARK: White count 5.1, hemoglobin 13.1, platelets 446,000. Sodium 133, potassium 4.1, BUN 20, creatinine 0.7. Glucose was 166. Ferritin is slightly lower at 707. IMPRESSION: 1. Pneumonia secondary to COVID-19 infection with respiratory failure and hypoxemia. Plan: Patient is in the ICU, Critical Care has been consulted. She is on Vapotherm high flow ventilation. IV Dexamethasone and Remdesivir. 2. History of hypertension. Her blood pressure is low and I am holding her Hydrochlorothiazide and Valsartan. 3. DVT prophylaxis has been ordered.
[2020-03-14 19:23] LABS: TROPONIN I < 0.02 NG/ML (< 0.10)
[2020-03-14] MEDS ORDERED: ENOXAPARIN 40MG/0.4ML SYRINGE (J1650 PER 10MG) SC SCH (21:00)
[2020-03-15] VITALS (21 sets, daily range): BP systolic 101–143; BP diastolic 66–94
[2020-03-15] MEDS: LR 1,000 ML IV SCH (05:30)
[2020-03-15 07:13] LABS: BASO % 0.3 % (0.0-1.0); EOS % 0.4 % (0.0-3.0); HEMATOCRIT 41.3 % (36.0-47.0); HEMOGLOBIN 13.3 g/dl (12.0-15.5); LYMPH # 1.2 10^3/uL (1.5-5.0); LYMPH % 15.3 % (24.0-44.0); MEAN CORPUSCULAR HEMOGLOBIN 28.7 pg (27.0-33.0); MEAN CORPUSCULAR HGB CONC 32.2 g/dl (32.0-36.5); MONO # 0.4 10^3/uL (0.0-0.8); MONO % 5.1 % (0.0-5.0); NEUTROPHILS % 78.2 % (36.0-66.0); PLATELET COUNT, AUTOMATED 593 10^3/uL (150-450); RED BLOOD COUNT 4.64 10^6/uL (4.00-5.40); WHITE BLOOD COUNT 7.7 10^3/uL (4.0-10.0)
--- NOTE | 2020-03-15 07:20 | REP ---
INDICATION: ARDS. COMPARISON: 03/13/2020 and 09/17/2017. TECHNIQUE: There is a single AP view of the chest performed portably with the patient upright. FINDINGS: Bilateral infiltrates are again identified, predominantly in the lung bases, unchanged. There are no pleural effusions. The cardiac size is normal. The chilo, mediastinum, and skeletal structures are unremarkable. IMPRESSION: No significant interval change. <Electronically signed by Sammy Wesley > 03/15/20 [id number]
[2020-03-15 07:30] LABS: INR 1.1; PARTIAL THROMBOPLASTIN TIME 31.8 SECONDS (24.2-38.5); PROTHROMBIN TIME 14.4 SECONDS (12.5-14.3)
[2020-03-15] MEDS: HumaLOG INSULIN (NovoLOG) PER UNIT SC SCH ×4 (07:30→20:41)
[2020-03-15 07:36] LABS: ALBUMIN 2.6 GM/DL (3.2-5.2); ALT/SGPT 43 U/L (12-78); BILIRUBIN,DIRECT 0.2 MG/DL (0.0-0.2); BILIRUBIN,TOTAL 0.6 MG/DL (0.2-1.0); BLOOD UREA NITROGEN 26 MG/DL (7-18); CALCIUM LEVEL 8.2 MG/DL (8.8-10.2); CARBON DIOXIDE LEVEL 22 MEQ/L (21-32); CHLORIDE LEVEL 107 MEQ/L (98-107); CREATININE FOR GFR 0.63 MG/DL (0.55-1.30); FERRITIN 629 NG/ML (8-252); GLOMERULAR FILTRATION RATE > 60.0 (>45); GLUCOSE, FASTING 105 MG/DL (70-100); MAGNESIUM LEVEL 2.6 MG/DL (1.8-2.4); NT-PRO BNP 227 PG/ML (<125); POTASSIUM SERUM 4.1 MEQ/L (3.5-5.1); SODIUM LEVEL 139 MEQ/L (136-145); TOTAL PROTEIN 6.7 GM/DL (6.4-8.2); TROPONIN I < 0.02 NG/ML (< 0.10)
[2020-03-15] MEDS: OMEGA-3 1000MG CAPSULE PO SCH (08:27)
[2020-03-15] MEDS: ENOXAPARIN 30MG/0.3ML SYRINGE (J1650 PER 10MG) SC SCH ×2 (08:27→20:41)
[2020-03-15] MEDS: ASPIRIN 81 MG ENTERIC TAB PO SCH (08:27)
[2020-03-15] MEDS: dexameTHASONE 20MG/5ML VIAL (J1100 PER 1MG) IV SCH (08:27)
[2020-03-15] MEDS: PANTOPRAZOLE 40MG VIAL (C9113 PER 1) IV SCH (08:27)
--- NOTE | 2020-03-15 08:44 | IPN ---
PROGRESS NOTE DATE: 03/13/2020 SUBJECTIVE: Andrei is seen in the ICU. She has COVID pneumonia. She is also being followed by pulmonary/critical care. She said she feels less short of breath than yesterday. O2 saturations are in the high 80s right now. She is not running any fevers. She looks more comfortable than yesterday. OBJECTIVE: VITAL SIGNS: Blood pressure 133/69, pulse of 88, temperature 98.8 degrees, O2 saturation 95%. GENERAL APPEARANCE: She looks more well and is more talkative without any dyspnea upon speaking. HEENT: Unremarkable. LUNGS: Better breath sounds, few rhonchi. HEART: Regular rate and rhythm. ABDOMEN: Soft and nontender. EXTREMITIES: No peripheral edema. LABORATORY DATA: White count 7.7, hemoglobin 13, platelets normal. Sodium 139, potassium 4.1, BUN 26, creatinine 0.6, glucose 105. Ferritin continues to trend down. IMPRESSION: 1. COVID pneumonia. She is on Vapotherm, intravenous (IV) dexamethasone, and remdesivir, which will continue. Appreciate critical care's assistance. Clinically, she has improved. 2. Hypertension. Blood pressure is well-controlled off her antihypertensives, which were stopped yesterday. 3. Deep vein thrombosis (DVT) prophylaxis. Dose adjusted by critical care.
--- NOTE | 2020-03-15 10:20 | CCN ---
CRITICAL CARE NOTE DATE: 03/15/2020 SUBJECTIVE: The patient is seen in the intensive care unit hypoxemic and critically ill. This is hospital day #3. She has been on and off noninvasive pressure support over the last 24 hours. OBJECTIVE: GENERAL APPEARANCE: At bedside, she does not appear in terrible distress. VITAL SIGNS: Her temperature is 98.8, pulse rate 88, respirations 24, blood pressure 133/65. Currently on a Vapotherm at 80% her saturation is 95%. I and O for the past 24 hours 1670 in, 1550 out; since midnight 480 in and 0 recorded output. HEENT: Her oral and nasal mucosa are pink. NECK: Supple. HEART: Sounds regular. LUNGS: Breath sounds coarse bilaterally. ABDOMEN: Soft. EXTREMITIES: No significant edema. DIAGNOSTIC STUDIES: Her white cell count is up slightly at 7.7, hemoglobin is stable at 13.3, hematocrit is 41.3, platelet count is up slightly at 593,000. Differential white cell count shows 78% neutrophils. Electrolytes are sodium 139, potassium 4.1, chloride 107, BUN 26, creatinine 0.63, glucose 105. Calcium is 8.2, magnesium 2.6. Ferritin is down at 629. Her AST is down at 40, ALT is stable at 43, alkaline phosphatase down 182. Her C-reactive protein was 13.2 down from 14.5. Albumin 2.6. PT is 14, PTT is 31. Fibrinogen is down at 565. IMAGING: Chest x-ray shows stability over the past 24 hours with bilateral hazy interstitial infiltrates. MEDICATIONS: On review, she is receiving dexamethasone 6 mg daily, aspirin 81 mg a day, lactated ringers at 40 mL/hour, remdesivir 100 mg a day, Protonix 40 mg a day, and Lovenox 30 mg every 12 hours. ASSESSMENT AND PLAN: The primary problem requiring critical attention is hypoxic respiratory failure. The patient's gas exchange is somewhat better. We will continue with Vapotherm and intermittent use of noninvasive ventilation. COVID pneumonia: The patient has received dexamethasone and remdesivir, one dose of tocilizumab, and is tolerating the prone posture. Inflammatory markers are favorable. Hypercoagulable state. Will continue with weight-based Lovenox. Ulcer prophylaxis in place with Protonix. Glycemic control is acceptable at this point. I have reviewed the case with the patient's attending physician. Her condition remains critical. Prognosis is guarded. I would maintain her in the intensive care unit today. One hour and 14 minutes were spent in the provision of bedside critical care and coordination exclusive of any procedure time.
[2020-03-15] MEDS ORDERED: NS 1,000 ML IV SCH (10:30)
[2020-03-15] MEDS: SODIUM CHLORIDE 0.9% INJ 10 ML SYR IV SCH (11:00)
[2020-03-16] VITALS (10 sets, daily range): BP systolic 104–146; BP diastolic 56–88
[2020-03-16 05:27] LABS: BASO % 0.2 % (0.0-1.0); EOS # 0.2 10^3/uL (0.0-0.5); EOS % 2.4 % (0.0-3.0); HEMATOCRIT 36.5 % (36.0-47.0); HEMOGLOBIN 11.9 g/dl (12.0-15.5); LYMPH # 1.2 10^3/uL (1.5-5.0); LYMPH % 18.8 % (24.0-44.0); MEAN CORPUSCULAR HEMOGLOBIN 28.6 pg (27.0-33.0); MEAN CORPUSCULAR HGB CONC 32.6 g/dl (32.0-36.5); MEAN CORPUSCULAR VOLUME 87.7 fl (80.0-96.0); MONO # 0.4 10^3/uL (0.0-0.8); MONO % 5.6 % (0.0-5.0); NEUTROPHILS # 4.5 10^3/uL (1.5-8.5); NEUTROPHILS % 72.4 % (36.0-66.0); PLATELET COUNT, AUTOMATED 608 10^3/uL (150-450); RED BLOOD COUNT 4.16 10^6/uL (4.00-5.40); WHITE BLOOD COUNT 6.2 10^3/uL (4.0-10.0)
[2020-03-16 05:43] LABS: INR 1.22; PROTHROMBIN TIME 15.7 SECONDS (12.5-14.3)
[2020-03-16 05:44] LABS: PARTIAL THROMBOPLASTIN TIME 32.9 SECONDS (24.2-38.5)
[2020-03-16 05:57] LABS: ALBUMIN 2.3 GM/DL (3.2-5.2); ALT/SGPT 31 U/L (12-78); BILIRUBIN,DIRECT 0.2 MG/DL (0.0-0.2); BILIRUBIN,TOTAL 0.6 MG/DL (0.2-1.0); BLOOD UREA NITROGEN 22 MG/DL (7-18); CALCIUM LEVEL 7.6 MG/DL (8.8-10.2); CARBON DIOXIDE LEVEL 24 MEQ/L (21-32); CHLORIDE LEVEL 112 MEQ/L (98-107); CHOLESTEROL LEVEL 137 MG/DL (< 200); CPK CREATINE PHOSPHOKINASE 109 U/L (26-192); CREATININE FOR GFR 0.58 MG/DL (0.55-1.30); FERRITIN 386 NG/ML (8-252); GLOMERULAR FILTRATION RATE > 60.0 (>45); GLUCOSE, FASTING 93 MG/DL (70-100); LDH LACTATE DEHYDROGENASE 427 U/L (84-246); MAGNESIUM LEVEL 2.2 MG/DL (1.8-2.4); NT-PRO BNP 314 PG/ML (<125); PHOSPHORUS LEVEL 2.8 MG/DL (2.5-4.9); POTASSIUM SERUM 3.5 MEQ/L (3.5-5.1); SODIUM LEVEL 142 MEQ/L (136-145); TOTAL PROTEIN 6.2 GM/DL (6.4-8.2); TRIGLYCERIDES LEVEL 99 MG/DL (<150)
[2020-03-16] MEDS: HumaLOG INSULIN (NovoLOG) PER UNIT SC SCH (07:30)
[2020-03-16] MEDS: OMEGA-3 1000MG CAPSULE PO SCH (09:47)
[2020-03-16] MEDS: PANTOPRAZOLE 40MG VIAL (C9113 PER 1) IV SCH (09:47)
[2020-03-16] MEDS: ENOXAPARIN 30MG/0.3ML SYRINGE (J1650 PER 10MG) SC SCH ×2 (09:47→20:02)
[2020-03-16] MEDS: ASPIRIN 81 MG ENTERIC TAB PO SCH (09:47)
[2020-03-16] MEDS: dexameTHASONE 20MG/5ML VIAL (J1100 PER 1MG) IV SCH (09:47)
[2020-03-16] MEDS: SODIUM CHLORIDE 0.9% INJ 10 ML SYR IV SCH (11:00)
--- NOTE | 2020-03-16 15:26 | CCN ---
CRITICAL CARE NOTE DATE: 03/16/2020 The patient is seen in the intensive care unit hypoxemic, requiring 70% oxygen. This is hospital day #4, intensive care unit (ICU) day #3. At bedside temperature is 98, pulse rate 66, respirations 24, blood pressure 128/74. Her SaO2 saturation is 93% on 70% oxygen. Intake and output for the past 24 hours: 1970 in, 800 out, since midnight 200 in, 150 out. She is ill appearing. Mucosae are pink. Neck is supple. No jugular venous distention. Heart sounds regular. Breath sounds diminished, clear. Some crepitance. Abdomen soft. Extremities: No edema. DIAGNOSTIC STUDIES: White cell count is 6.2, hemoglobin 11.9, hematocrit 36.5, platelet count is up to 606,000. Differential white cell count shows 72% neutrophils. The electrolytes are sodium 142, potassium 3.5, chloride 112, CO2 of 24, BUN 22, creatinine 0.58, glucose 93. Her calcium is 7.6, phosphorus 2.8, magnesium 2.2. Ferritin is down at 386 from 629. AST is 28, ALT 31. Alkaline phosphatase is down from 182 to 130. LDH is down to 427. Her natriuretic peptide is normal at 314. Albumin 2.3. C-reactive protein is down at 6.2. Fibrinogen is down from 565 to 425. The primary problem requiring critical attention is hypoxic respiratory failure. She is saturating acceptably on VapoTherm. We will discontinue noninvasive positive pressure ventilation and attempt to titrate down oxygen delivery. COVID pneumonia: The patient has received remdesivir, dexamethasone, and tocilizumab. Inflammatory markers are responding favorably. Hypercoagulable state secondary to COVID pneumonia: She is on weight-based Lovenox and will continue with this. Glycemic control is acceptable at this point. We will discontinue fingerstick blood sugars and coverage excluding procedure time. Deep venous thrombosis (DVT) prophylaxis is addressed by the Lovenox. Ulcer prophylaxis is being provided. Patient's condition remains critical. Prognosis is guarded. Forty-four minutes was spent in the provision of bedside critical care and coordination. [facility]
--- NOTE | 2020-03-16 21:17 | IPNPDOC ---
Subjective Date Seen The patient was seen on 03/16/20. Subjective Chief Complaint/HPI Mrs. Minaya is a 64 year old female here with COVID PNA. She has been afebrile throughout her hospital stay. Denies chest pain, worsening dyspnea, abdominal pain or dysuria. Oxygen requirements have been weaning down Objective Physical Examination General Exam: Positive: Alert, Cooperative Eye Exam: Positive: EOMI; Negative: Sclera icteric ENT Exam: Positive: Atraumatic Neck Exam: Positive: Supple Chest Exam: Positive: Clear to auscultation Heart Exam: Positive: Rate Normal, Regular Rhythm Abdomen Exam: Positive: Normal bowel sounds, Soft; Negative: Tenderness Extremity Exam: Negative: Edema Neuro Exam: Positive: Cranial Nerves 3-12 NL Psych Exam: Positive: Mental status NL, Mood NL Assessment /Plan Assessment Mrs. Minaya is a 64 year old female here with COVID PNA. She requires vapotherm, but has been slowing weaning off. She will complete 5 days of remdesivir on 03/18/2020. She continues on IV Decadron and Lovenox 0.5mg/kg BID Plan/VTE VTE Prophylaxis Ordered?: Yes Plan 1. COVID PNA -Requires Vapotherm, but has been weaning down -Inflammatory markers declining except for an abnormal D-Dimer increase. Continue to follow D-dimer -Continue with Remdesivir, IV Decadron, and Lovenox 0.5mg/kg BID 2. Hypertension -Blood pressure controlled off of antihypertensives 3. GERD ppx -Patient receiving IV steroids which may be prolonged -Continue pantoprazole 4. DVT ppx -Continue with Lovenox 0.5mg/kg BID VS, I&O, 24H, [facility] Vital Signs/I&O Vital Signs Date Time Temp Pulse Resp B/P (MAP) Pulse Ox O2 Delivery O2 Flow Rate FiO2 03/16/20 20:00 98.3 82 24 141/88 (105) 91 HVNI-Vapotherm 35.0 50 I&O- Last 24 Hours up to 6 AM 03/16/20 06:00 Intake Total 1690 ml Output Total 950 ml Balance 740 ml Laboratory Data 24H LABS Laboratory Tests 2 03/16/20 05:01: Immature Granulocyte % (Auto) 0.6, Neutrophils (%) (Auto) 72.4H, Lymphocytes (%) (Auto) 18.8L, Monocytes (%) (Auto) 5.6H, Eosinophils (%) (Auto) 2.4, Basophils (%) (Auto) 0.2, Neutrophils # (Auto) 4.5, Lymphocytes # (Auto) 1.2L, Monocytes # (Auto) 0.4, Eosinophils # (Auto) 0.2, Basophils # (Auto) 0.0, Nucleated Red Blood Cells % (auto) 0.0, Prothrombin Time 15.7H, Prothromb Time International Ratio 1.22, Activated Partial Thromboplast Time 32.9, Fibrinogen 425, Anion Gap 6L, Glomerular Filtration Rate > 60.0, Calcium Level 7.6L, Phosphorus Level 2.8, Magnesium Level 2.2, Ferritin 386H, Total Bilirubin 0.6, Direct Bilirubin 0.2, Aspartate Amino Transf (AST/SGOT) 28, Alanine Aminotransferase (ALT/SGPT) 31, Alkaline Phosphatase 130H, Lactate Dehydrogenase 427H, Total Creatine Kinase 109, DP-Bjg-Z-Type Natriuretic Peptide 314H, Total Protein 6.2L, Albumin 2.3L, Albumin/Globulin Ratio 0.6L, Triglycerides Level 99, Cholesterol Level 137, Procalcitonin <0.05 03/16/20 18:20: D-Dimer, Quantitative 1957.86H, C-Reactive Protein, Quantitative 3.07H CBC/BMP Laboratory Tests 03/16/20 05:01 Microbiology Microbiology 03/13/20 Blood Culture - Preliminary, Resulted No Growth after 72 hours. All specime... TRISTAN OCHOA DO Mar 16, 2020 21:17
[2020-03-17] VITALS (8 sets, daily range): BP systolic 131–164; BP diastolic 72–96
[2020-03-17 05:18] LABS: BASO % 0.2 % (0.0-1.0); EOS # 0.2 10^3/uL (0.0-0.5); EOS % 3.3 % (0.0-3.0); HEMATOCRIT 37.3 % (36.0-47.0); LYMPH # 1.1 10^3/uL (1.5-5.0); LYMPH % 22.4 % (24.0-44.0); MEAN CORPUSCULAR HEMOGLOBIN 28.4 pg (27.0-33.0); MEAN CORPUSCULAR HGB CONC 32.2 g/dl (32.0-36.5); MEAN CORPUSCULAR VOLUME 88.4 fl (80.0-96.0); MONO # 0.4 10^3/uL (0.0-0.8); MONO % 7.8 % (0.0-5.0); NEUTROPHILS # 3.3 10^3/uL (1.5-8.5); NEUTROPHILS % 65.5 % (36.0-66.0); PLATELET COUNT, AUTOMATED 611 10^3/uL (150-450); RED BLOOD COUNT 4.22 10^6/uL (4.00-5.40); WHITE BLOOD COUNT 5.1 10^3/uL (4.0-10.0)
[2020-03-17 05:30] LABS: INR 1.19; PROTHROMBIN TIME 15.4 SECONDS (12.5-14.3)
[2020-03-17 05:31] LABS: PARTIAL THROMBOPLASTIN TIME 33.1 SECONDS (24.2-38.5)
[2020-03-17 05:45] LABS: ALBUMIN 2.4 GM/DL (3.2-5.2); ALT/SGPT 43 U/L (12-78); BILIRUBIN,DIRECT 0.2 MG/DL (0.0-0.2); BILIRUBIN,TOTAL 0.4 MG/DL (0.2-1.0); BLOOD UREA NITROGEN 24 MG/DL (7-18); CARBON DIOXIDE LEVEL 23 MEQ/L (21-32); CHLORIDE LEVEL 113 MEQ/L (98-107); CHOLESTEROL LEVEL 120 MG/DL (< 200); CPK CREATINE PHOSPHOKINASE 121 U/L (26-192); CREATININE FOR GFR 0.52 MG/DL (0.55-1.30); FERRITIN 407 NG/ML (8-252); GLOMERULAR FILTRATION RATE > 60.0 (>45); GLUCOSE, FASTING 82 MG/DL (70-100); LDH LACTATE DEHYDROGENASE 524 U/L (84-246); MAGNESIUM LEVEL 1.9 MG/DL (1.8-2.4); NT-PRO BNP 512 PG/ML (<125); PHOSPHORUS LEVEL 3.8 MG/DL (2.5-4.9); POTASSIUM SERUM 4.2 MEQ/L (3.5-5.1); SODIUM LEVEL 143 MEQ/L (136-145); TOTAL PROTEIN 5.7 GM/DL (6.4-8.2); TRIGLYCERIDES LEVEL 114 MG/DL (<150)
[2020-03-17] MEDS: PANTOPRAZOLE 40MG VIAL (C9113 PER 1) IV SCH (09:19)
[2020-03-17] MEDS: dexameTHASONE 20MG/5ML VIAL (J1100 PER 1MG) IV SCH (09:19)
[2020-03-17] MEDS: OMEGA-3 1000MG CAPSULE PO SCH (09:20)
[2020-03-17] MEDS: VALSARTAN 40MG TABLET (DIOVAN) PO SCH (09:20)
[2020-03-17] MEDS: ENOXAPARIN 30MG/0.3ML SYRINGE (J1650 PER 10MG) SC SCH ×2 (09:20→19:54)
[2020-03-17] MEDS: ASPIRIN 81 MG ENTERIC TAB PO SCH (09:21)
[2020-03-17] MEDS: SODIUM CHLORIDE 0.9% INJ 10 ML SYR IV SCH (09:21)
--- NOTE | 2020-03-17 13:41 | CCN ---
CRITICAL CARE NOTE DATE: 03/17/2020 The patient is seen in the intensive care unit hypoxemic, requiring 50% VapoTherm with 30 liters. Her temperature is 97, pulse rate 91, respirations 31, blood pressure 153/95. Intake and output for the past 24 hours: 1270 in, 750 out, since midnight 560 in, 200 out. She is ill appearing but responsive. Mucosa is moist. Neck is supple. Heart sounds regular. Breath sounds coarse, diminished. Abdomen soft. Extremities: No edema. DIAGNOSTIC STUDIES: Her white cell count is 5.1, hemoglobin 12, hematocrit 37, platelet count is up slightly at 611. Differential white cell count shows 65% neutrophils. Her sodium is 143, potassium 4.2, chloride 113, BUN is 24, creatinine is 0.52, and the glucose 82. Calcium is 8.0 on an albumin of 2.4. Her phosphorus is 3.8. Ferritin is up slightly at 407. Her fibrinogen is down slightly at 375 from 425. Alkaline phosphatase is about the same at 137. LDH is up slightly at 524. Her C-reactive protein was down at 3.07. BNP is 512. Albumin is 2.4. No additional imaging studies were performed today. On review of medications, she is receiving Valsartan 40 mg a day, remdesivir 100 mg a day, Decadron 6 mg a day, aspirin 81 mg daily, Protonix 40 mg daily, and Lovenox 30 mg subcutaneous every 12 hours. The primary problem requiring critical attention is hypoxemia. The patient is still requiring rather high concentrations of oxygen at a rapid flow rate due to her tachypnea. We will continue close monitoring. COVID pneumonia: She has received dexamethasone and remdesivir and one dose of tocilizumab. Inflammatory markers are up slightly. If a trend of increasing inflammatory markers is seen, we may entertain a second dose of tocilizumab. Hypercoagulability. There is no evidence of thrombosis on examination. The patient continues to receive weight-based Lovenox. Glycemic control is within acceptable limits. Forty-seven minutes was spent in the provision of bedside critical care and coordination, exclusive of any procedure time.
--- NOTE | 2020-03-17 20:15 | IPNPDOC ---
Subjective Date Seen The patient was seen on 03/17/20. Subjective Chief Complaint/HPI Mrs. Minaya is a 64 year old female here with COVID PNA. No events overnight. She has been afebrile throughout her hospital stay. Continues on vapotherm. Denies chest pain, worsening dyspnea, abdominal pain or dysuria. Objective Physical Examination General Exam: Positive: Alert, Cooperative Eye Exam: Positive: EOMI; Negative: Sclera icteric ENT Exam: Positive: Atraumatic Neck Exam: Positive: Supple Chest Exam: Positive: Clear to auscultation Heart Exam: Positive: Rate Normal, Regular Rhythm Abdomen Exam: Positive: Normal bowel sounds, Soft; Negative: Tenderness Extremity Exam: Negative: Edema Neuro Exam: Positive: Cranial Nerves 3-12 NL Psych Exam: Positive: Mental status NL, Mood NL Assessment /Plan Assessment Mrs. Minaya is a 64 year old female here with COVID PNA. She requires vapotherm, but has been slowing weaning off. She will complete 5 days of remdesivir on 03/18/2020. She continues on IV Decadron and Lovenox 0.5mg/kg BID. Plan/VTE VTE Prophylaxis Ordered?: Yes Plan 1. COVID PNA -Continue to require Vapotherm -Inflammatory markers declining except for an abnormal D-Dimer increase. Continue to follow D-dimer -Continue with Remdesivir, IV Decadron, and Lovenox 0.5mg/kg BID 2. Hypertension -Continue valsartan 3. GERD ppx -Patient receiving IV steroids which may be prolonged -Continue pantoprazole 4. DVT ppx -Continue with Lovenox 0.5mg/kg BID VS, I&O, 24H, [facility] Vital Signs/I&O Vital Signs Date Time Temp Pulse Resp B/P (MAP) Pulse Ox O2 Delivery O2 Flow Rate FiO2 03/17/20 20:00 96.7 79 22 137/87 (104) 91 HVNI-Vapotherm 35.0 50 I&O- Last 24 Hours up to 6 AM 03/17/20 06:00 Intake Total 1630 ml Output Total 800 ml Balance 830 ml Laboratory Data 24H LABS Laboratory Tests 2 03/17/20 04:32: Immature Granulocyte % (Auto) 0.8, Neutrophils (%) (Auto) 65.5, Lymphocytes (%) (Auto) 22.4L, Monocytes (%) (Auto) 7.8H, Eosinophils (%) (Auto) 3.3H, Basophils (%) (Auto) 0.2, Neutrophils # (Auto) 3.3, Lymphocytes # (Auto) 1.1L, Monocytes # (Auto) 0.4, Eosinophils # (Auto) 0.2, Basophils # (Auto) 0.0, Nucleated Red Blood Cells % (auto) 0.0, Prothrombin Time 15.4H, Prothromb Time International Ratio 1.19, Activated Partial Thromboplast Time 33.1, Fibrinogen 375, Anion Gap 7L, Glomerular Filtration Rate > 60.0, Calcium Level 8.0L, Phosphorus Level 3.8#, Magnesium Level 1.9, Ferritin 407H, Total Bilirubin 0.4, Direct Bilirubin 0.2, Aspartate Amino Transf (AST/SGOT) 63H, Alanine Aminotransferase (ALT/SGPT) 43, Alkaline Phosphatase 137H, Lactate Dehydrogenase 524H, Total Creatine Kinase 121, GZ-Wbx-P-Type Natriuretic Peptide 512H, Total Protein 5.7L, Albumin 2.4L, Albumin/Globulin Ratio 0.7L, Triglycerides Level 114, Cholesterol Level 120, Procalcitonin <0.05 03/17/20 18:43: C-Reactive Protein, Quantitative 1.75H 03/17/20 18:44: D-Dimer, Quantitative 3035.75H CBC/BMP Laboratory Tests 03/17/20 04:32 Microbiology Microbiology 03/13/20 Blood Culture - Preliminary, Resulted No Growth after 72 hours. All specime... TRISTAN OCHOA DO Mar 17, 2020 20:15
[2020-03-18] VITALS (9 sets, daily range): BP systolic 120–163; BP diastolic 66–97
[2020-03-18 04:52] LABS: BASO % 0.3 % (0.0-1.0); EOS # 0.2 10^3/uL (0.0-0.5); EOS % 3.7 % (0.0-3.0); HEMATOCRIT 39.6 % (36.0-47.0); HEMOGLOBIN 12.7 g/dl (12.0-15.5); LYMPH # 1.4 10^3/uL (1.5-5.0); LYMPH % 23.7 % (24.0-44.0); MEAN CORPUSCULAR HEMOGLOBIN 28.1 pg (27.0-33.0); MEAN CORPUSCULAR HGB CONC 32.1 g/dl (32.0-36.5); MEAN CORPUSCULAR VOLUME 87.6 fl (80.0-96.0); MONO # 0.4 10^3/uL (0.0-0.8); MONO % 5.9 % (0.0-5.0); NEUTROPHILS # 3.9 10^3/uL (1.5-8.5); NEUTROPHILS % 65.4 % (36.0-66.0); PLATELET COUNT, AUTOMATED 633 10^3/uL (150-450); RED BLOOD COUNT 4.52 10^6/uL (4.00-5.40)
[2020-03-18 05:07] LABS: INR 1.19; PROTHROMBIN TIME 15.4 SECONDS (12.5-14.3)
[2020-03-18 05:11] LABS: D-DIMER QUANT 3295.87 ng/ml (<500)
[2020-03-18 05:24] LABS: ALBUMIN 2.6 GM/DL (3.2-5.2); ALT/SGPT 169 U/L (12-78); BILIRUBIN,DIRECT 0.3 MG/DL (0.0-0.2); BILIRUBIN,TOTAL 0.8 MG/DL (0.2-1.0); BLOOD UREA NITROGEN 19 MG/DL (7-18); CALCIUM LEVEL 7.9 MG/DL (8.8-10.2); CARBON DIOXIDE LEVEL 22 MEQ/L (21-32); CHLORIDE LEVEL 109 MEQ/L (98-107); CHOLESTEROL LEVEL 113 MG/DL (< 200); CPK CREATINE PHOSPHOKINASE 125 U/L (26-192); CREATININE FOR GFR 0.58 MG/DL (0.55-1.30); FERRITIN 737 NG/ML (8-252); GLOMERULAR FILTRATION RATE > 60.0 (>45); GLUCOSE, FASTING 80 MG/DL (70-100); LDH LACTATE DEHYDROGENASE 682 U/L (84-246); MAGNESIUM LEVEL 1.9 MG/DL (1.8-2.4); NT-PRO BNP 676 PG/ML (<125); PHOSPHORUS LEVEL 3.4 MG/DL (2.5-4.9); SODIUM LEVEL 142 MEQ/L (136-145); TOTAL PROTEIN 5.9 GM/DL (6.4-8.2); TRIGLYCERIDES LEVEL 118 MG/DL (<150)
[2020-03-18] MEDS: OMEGA-3 1000MG CAPSULE PO SCH (09:06)
[2020-03-18] MEDS: ASPIRIN 81 MG ENTERIC TAB PO SCH (09:06)
[2020-03-18] MEDS: VALSARTAN 40MG TABLET (DIOVAN) PO SCH (09:06)
[2020-03-18] MEDS: dexameTHASONE 20MG/5ML VIAL (J1100 PER 1MG) IV SCH (09:09)
[2020-03-18] MEDS: ENOXAPARIN 30MG/0.3ML SYRINGE (J1650 PER 10MG) SC SCH ×2 (09:09→20:04)
[2020-03-18] MEDS: PANTOPRAZOLE 40MG VIAL (C9113 PER 1) IV SCH (09:09)
[2020-03-18] MEDS: SODIUM CHLORIDE 0.9% INJ 10 ML SYR IV SCH (10:00)
--- NOTE | 2020-03-18 13:07 | CCN ---
CRITICAL CARE NOTE DATE: 03/18/2020 The patient is seen in the intensive care unit, hypoxemic, on high-flow via VapoTherm. This is hospital day #6, intensive care unit day #6. At bedside her temperature is 96, pulse rate 55, respirations 20, blood pressure 120/60. Intake and output for the past 24 hours: 1630 in, 1200 out, since midnight 0 in, 200 out. At bedside she is ill appearing. Mildly to moderately tachypneic. Oral mucosa is pink. Neck is supple,. Heart sounds are regular with no ectopy, monitoring showing a sinus rhythm. Breath sounds mildly coarse in the bases. Abdomen soft. DIAGNOSTIC STUDIES: Her white count is 6, hemoglobin 12.7, hematocrit 39.6, platelet count 633,000, up slightly. Differential white cell count shows 65% neutrophils. Electrolytes are sodium 142, potassium 4, chloride 109, CO2 of 22, BUN 19, creatinine 0.58, glucose 80. Calcium is 7.9 and an albumin of 2.6. Phosphorus is 34. Magnesium is stable at 1.9. Ferritin is up at 737. Her bilirubin is 0.8, AST 268, up from 63, ALT 169, up from 43, alkaline phosphatase is 156, up slightly from 137, and the LDH is also up at 682. The brain natriuretic peptide is 676. C-reactive protein is 1.75. Her D-dimer is 3295. Fibrinogen 310. The primary problem requiring critical attention is COVID pneumonia with hypoxemia. The patient has received remdesivir and dexamethasone and a dose of tocilizumab. Her inflammatory markers are some better; however, her liver enzymes are up, possibly related to the remdesivir. Today is her last dose. Hypercoagulability: The patient has no evidence of thrombosis on examination and continues on weight-based Lovenox. Glycemic control is acceptable. Ulcer prophylaxis is being addressed. The patient's conditions remains critical. Oxygen saturation is borderline. If saturation allows, we will try changing to a comfort flow system to allow increased mobility today. Fifty-two minutes was spent in the provision of bedside critical care and coordination, exclusive of any procedure time.
[2020-03-18] MEDS ORDERED: MIRALAX *UNIT DOSE* 17GM PACKET PO PRN (15:15)
--- NOTE | 2020-03-18 18:31 | IPNPDOC ---
Subjective Date Seen The patient was seen on 03/18/20. Subjective Chief Complaint/HPI Mrs. Minaya is a 64 year old female here with COVID PNA. No events overnight and afebrile. Today, she was weaned from Vapotherm to hi-flow NC. She is feeling better today and is anxious about home Denies chest pain, worsening dyspnea, abdominal pain, or dysuria. Objective Physical Examination General Exam: Positive: Alert, Cooperative Eye Exam: Positive: EOMI; Negative: Sclera icteric ENT Exam: Positive: Atraumatic Neck Exam: Positive: Supple Chest Exam: Positive: Clear to auscultation Heart Exam: Positive: Rate Normal, Regular Rhythm Abdomen Exam: Positive: Normal bowel sounds, Soft; Negative: Tenderness Extremity Exam: Negative: Edema Neuro Exam: Positive: Cranial Nerves 3-12 NL Psych Exam: Positive: Mental status NL, Mood NL Assessment /Plan Assessment Mrs. Minaya is a 64 year old female here with COVID PNA. She requires vapotherm, but has been slowing weaning off. She will complete 5 days of remdesivir on 03/18/2020. She continues on IV Decadron and Lovenox 0.5mg/kg BID. Plan/VTE VTE Prophylaxis Ordered?: Yes Plan 1. COVID PNA -Continue to require Vapotherm -Inflammatory markers declining except for an abnormal D-Dimer increase. Continue to follow D-dimer -Completed Remdesivir today -IV Decadron, and Lovenox 0.5mg/kg BID 2. Hypertension -Continue valsartan 3. GERD ppx -Patient receiving IV steroids which may be prolonged -Continue pantoprazole 4. DVT ppx -Continue with Lovenox 0.5mg/kg BID VS, [facility]&O, [facility] V[facility]/I&O Vital Signs Date Time Temp Pulse Resp B/P (MAP) Pulse Ox O2 Delivery O2 Flow Rate FiO2 03/18/20 18:00 91 24 95 High Flow Cannula 6.0 03/18/20 16:00 97.9 131/88 (102) 03/18/20 11:00 40 I&O- Last 24 Hours up to 6 AM 03/18/20 06:00 Intake Total 1070 ml Output Total 1200 ml Balance -130 ml Laboratory Data 24H LABS Laboratory Tests 2 03/17/20 18:43: C-Reactive Protein, Quantitative 1.75H 03/17/20 18:44: D-Dimer, Quantitative 3035.75H 03/18/20 04:29: D-Dimer, Quantitative 3295.87H, Immature Granulocyte % (Auto) 1.0, Neutrophils (%) (Auto) 65.4, Lymphocytes (%) (Auto) 23.7L, Monocytes (%) (Auto) 5.9H, Eosinophils (%) (Auto) 3.7H, Basophils (%) (Auto) 0.3, Neutrophils # (Auto) 3.9, Lymphocytes # (Auto) 1.4L, Monocytes # (Auto) 0.4, Eosinophils # (Auto) 0.2, Basophils # (Auto) 0.0, Nucleated Red Blood Cells % (auto) 0.0, Prothrombin Time 15.4H, Prothromb Time International Ratio 1.19, Activated Partial Thromboplast Time 32.0, Fibrinogen 310, Anion Gap 11, Glomerular Filtration Rate > 60.0, Calcium Level 7.9L, Phosphorus Level 3.4, Magnesium Level 1.9, Ferritin 737H, Total Bilirubin 0.8#, Direct Bilirubin 0.3H, Aspartate Amino Transf (AST/SGOT) 268H, Alanine Aminotransferase (ALT/SGPT) 169H, Alkaline Phosphatase 156H, Lactate Dehydrogenase 682H, Total Creatine Kinase 125, LO-Snp-Y-Type Natriuretic Peptide 676H, Total Protein 5.9L, Albumin 2.6L, Albumin/Globulin Ratio 0.8L, Triglycerides Level 118, Cholesterol Level 113, Procalcitonin 0.05 CBC/BMP Laboratory Tests 03/18/20 04:29 Microbiology Microbiology 03/13/20 Blood Culture - Final, Complete NO GROWTH AFTER 5 DAYS TRISTAN OCHOA DO Mar 18, 2020 18:31
[2020-03-18] MEDS: DOCUSATE SODIUM 100MG CAPSULE PO SCH (20:04)
[2020-03-19] VITALS: BP 155/106
[2020-03-19 04:00] VITALS: BP 141/88
[2020-03-19 04:52] LABS: INR 1.21; PROTHROMBIN TIME 15.6 SECONDS (12.5-14.3)
[2020-03-19 04:53] LABS: PARTIAL THROMBOPLASTIN TIME 33.8 SECONDS (24.2-38.5)
[2020-03-19 04:55] LABS: D-DIMER QUANT 2593.41 ng/ml (<500)
[2020-03-19 05:01] LABS: ALBUMIN 2.6 GM/DL (3.2-5.2); ALT/SGPT 216 U/L (12-78); BILIRUBIN,TOTAL 0.7 MG/DL (0.2-1.0); BLOOD UREA NITROGEN 17 MG/DL (7-18); CALCIUM LEVEL 8.5 MG/DL (8.8-10.2); CARBON DIOXIDE LEVEL 24 MEQ/L (21-32); CHLORIDE LEVEL 111 MEQ/L (98-107); CHOLESTEROL LEVEL 104 MG/DL (< 200); CPK CREATINE PHOSPHOKINASE 85 U/L (26-192); CREATININE FOR GFR 0.54 MG/DL (0.55-1.30); GLOMERULAR FILTRATION RATE > 60.0 (>45); GLUCOSE, FASTING 88 MG/DL (70-100); LDH LACTATE DEHYDROGENASE 590 U/L (84-246); PHOSPHORUS LEVEL 3.9 MG/DL (2.5-4.9); POTASSIUM SERUM 4.1 MEQ/L (3.5-5.1); SODIUM LEVEL 142 MEQ/L (136-145); TOTAL PROTEIN 5.8 GM/DL (6.4-8.2); TRIGLYCERIDES LEVEL 89 MG/DL (<150)
[2020-03-19 08:00] VITALS: BP 124/82
[2020-03-19] MEDS: ENOXAPARIN 30MG/0.3ML SYRINGE (J1650 PER 10MG) SC SCH ×2 (08:43→19:30)
[2020-03-19] MEDS: dexameTHASONE 20MG/5ML VIAL (J1100 PER 1MG) IV SCH (08:43)
[2020-03-19] MEDS: OMEGA-3 1000MG CAPSULE PO SCH (08:43)
[2020-03-19] MEDS: PANTOPRAZOLE 40MG VIAL (C9113 PER 1) IV SCH (08:43)
[2020-03-19] MEDS: DOCUSATE SODIUM 100MG CAPSULE PO SCH ×2 (08:44→19:31)
[2020-03-19] MEDS: ASPIRIN 81 MG ENTERIC TAB PO SCH (08:44)
[2020-03-19] MEDS: VALSARTAN 40MG TABLET (DIOVAN) PO SCH (08:44)
[2020-03-19 13:00] VITALS: BP 124/79
[2020-03-19 16:00] VITALS: BP 114/74
--- NOTE | 2020-03-19 19:54 | IPNPDOC ---
Subjective Date Seen The patient was seen on 03/19/20. Subjective Chief Complaint/HPI Mrs. Minaya is a 64 year old female here with COVID PNA. No events overnight and afebrile. This evening, we will attempt to wean off oxygen. Otherwise, she denies any fever, chest pain ,dyspnea, abdominal pain, or dysuria. Objective Physical Examination General Exam: Positive: Alert, Cooperative Eye Exam: Positive: EOMI; Negative: Sclera icteric ENT Exam: Positive: Atraumatic Neck Exam: Positive: Supple Chest Exam: Positive: Clear to auscultation Heart Exam: Positive: Rate Normal, Regular Rhythm Abdomen Exam: Positive: Normal bowel sounds, Soft; Negative: Tenderness Extremity Exam: Negative: Edema Neuro Exam: Positive: Cranial Nerves 3-12 NL Psych Exam: Positive: Mental status NL, Mood NL Assessment /Plan Assessment Mrs. Minaya is a 64 year old female here with COVID PNA. She completed 5 days of remdesivir on 03/18/2020. She continues on IV Decadron and Lovenox 0.5mg/kg BID. Will attempt to wean off of oxygen tomorrow. Possible discharge tomorrow Plan/VTE VTE Prophylaxis Ordered?: Yes Plan 1. COVID PNA -Weaning off oxygen today -Inflammatory markers declining -Completed Remdesivir on 03/18/2020 -IV Decadron, and Lovenox 0.5mg/kg BID 2. Hypertension -Continue valsartan 3. GERD ppx -Patient receiving IV steroids which may be prolonged -Continue pantoprazole 4. DVT ppx -Continue with Lovenox 0.5mg/kg BID Disposition: Possible discharge tomorrow VS, I&O, 24H, [place] Vital Signs/I&O Vital Signs Date Time Temp Pulse Resp B/P (MAP) Pulse Ox O2 Delivery O2 Flow Rate FiO2 03/19/20 17:00 77 20 91 Room Air 03/19/20 16:00 97.3 114/74 (87) 03/19/20 15:00 3.0 03/18/20 11:00 40 I&O- Last 24 Hours up to 6 AM 03/19/20 06:00 Intake Total 1110 ml Output Total 1500 ml Balance -390 ml Laboratory Data 24H LABS Laboratory Tests 2 03/19/20 04:13: Prothrombin Time 15.6H, Prothromb Time International Ratio 1.21, Activated Partial Thromboplast Time 33.8, D-Dimer, Quantitative 2593.41H 03/19/20 04:14: Anion Gap 7L, Glomerular Filtration Rate > 60.0, Calcium Level 8.5L, Phosphorus Level 3.9, Total Bilirubin 0.7, Aspartate Amino Transf (AST/SGOT) 251H, Alanine Aminotransferase (ALT/SGPT) 216H, Alkaline Phosphatase 153H, Lactate Dehydrogenase 590H, Total Creatine Kinase 85, C-Reactive Protein, Quantitative 0.90H, Total Protein 5.8L, Albumin 2.6L, Albumin/Globulin Ratio 0.8L, Triglycerides Level 89, Cholesterol Level 104 CBC/BMP Laboratory Tests 03/19/20 04:14 Microbiology Microbiology 03/13/20 Blood Culture - Final, Complete NO GROWTH AFTER 5 DAYS TRISTAN OCHOA DO Mar 19, 2020 19:54
[2020-03-19 20:00] VITALS: BP 134/77
[2020-03-20] VITALS: BP 135/89
[2020-03-20 04:00] VITALS: BP 132/88
[2020-03-20 06:15] LABS: HEMATOCRIT 40.1 % (36.0-47.0); HEMOGLOBIN 12.9 g/dl (12.0-15.5); MEAN CORPUSCULAR HEMOGLOBIN 28.5 pg (27.0-33.0); MEAN CORPUSCULAR HGB CONC 32.2 g/dl (32.0-36.5); MEAN CORPUSCULAR VOLUME 88.7 fl (80.0-96.0); PLATELET COUNT, AUTOMATED 586 10^3/uL (150-450); RED BLOOD COUNT 4.52 10^6/uL (4.00-5.40); WHITE BLOOD COUNT 6.4 10^3/uL (4.0-10.0)
[2020-03-20 06:46] LABS: ALBUMIN 2.8 GM/DL (3.2-5.2); ALT/SGPT 249 U/L (12-78); BILIRUBIN,TOTAL 0.6 MG/DL (0.2-1.0); BLOOD UREA NITROGEN 13 MG/DL (7-18); C REACTIVE PROTEIN QUANTITATIV 0.63 MG/DL (0.00-0.30); CALCIUM LEVEL 8.8 MG/DL (8.8-10.2); CARBON DIOXIDE LEVEL 26 MEQ/L (21-32); CHLORIDE LEVEL 110 MEQ/L (98-107); CHOLESTEROL LEVEL 113 MG/DL (< 200); CPK CREATINE PHOSPHOKINASE 63 U/L (26-192); GLOMERULAR FILTRATION RATE > 60.0 (>45); GLUCOSE, FASTING 86 MG/DL (70-100); LDH LACTATE DEHYDROGENASE 528 U/L (84-246); PHOSPHORUS LEVEL 3.7 MG/DL (2.5-4.9); SODIUM LEVEL 143 MEQ/L (136-145); TRIGLYCERIDES LEVEL 121 MG/DL (<150)
[2020-03-20 08:00] VITALS: BP 131/80
[2020-03-20] MEDS ORDERED: PRED5PAK2 PO (09:20)
[2020-03-20] MEDS: ENOXAPARIN 30MG/0.3ML SYRINGE (J1650 PER 10MG) SC SCH (09:30)
[2020-03-20] MEDS: PANTOPRAZOLE 40MG VIAL (C9113 PER 1) IV SCH (09:30)
[2020-03-20] MEDS: DOCUSATE SODIUM 100MG CAPSULE PO SCH (09:31)
[2020-03-20] MEDS: dexameTHASONE 20MG/5ML VIAL (J1100 PER 1MG) IV SCH (09:31)
[2020-03-20] MEDS: OMEGA-3 1000MG CAPSULE PO SCH (09:31)
[2020-03-20] MEDS: ASPIRIN 81 MG ENTERIC TAB PO SCH (09:31)
[2020-03-20 09:32] VITALS: BP 131/80
[2020-03-20] MEDS: VALSARTAN 40MG TABLET (DIOVAN) PO SCH (09:32)
--- NOTE | 2020-03-20 22:20 | DS.PDOC ---
Discharge Summary General Date of Admission Mar 13, 2020 at 18:12 Date of Discharge Mar 20, 2020 Attending Physician: TRISTAN OCHOA DO Specialist/Consultants Involve Pulmonary/Critical Care: Dr. De La Torre Discharge Summary PROCEDURES PERFORMED DURING STAY: None. ADMITTING DIAGNOSES: 1. COVID 19 Pneumonia. 2. Hypertension DISCHARGE DIAGNOSES: 1. COVID 19 Pneumonia. 2. Acute hypoxic respiratory failure 3. Hypertension COMPLICATIONS/CHIEF COMPLAINT: Covid-19/Hypoxia. HISTORY OF PRESENT ILLNESS: Mrs. Minaya is a 64 year old female who is here with COVID 19 pneumonia. She had not felt well for the last 5 to 7 days prior to admission. On the day of admission, she felt more dyspneic and went to the urgent care. She was tested positive for COVID 19 and was sent to the ER for further evaluation. In the ED, CXR demonstrated patchy peripheral infiltrates bilaterally consistent with COVID 19 infection. At room air, she would desaturate to the 80s. Initially required 6L of oxygen. HOSPITAL COURSE: During her first night she rapidly desaturated and required high flow nasal canula. She was given a 5 day course of remdesivir, and started on steroids and Lovenox 0.5mg/kg BID. She was also given a dose of Tociluzumab. Her inflammatory markers declined and her oxygen requirements declined. At room air, she desaturated below 88%, but only required 1L of oxygen. She was anxious to go home and felt much better. Denied any dyspnea, chest pain, abdominal pain, or dysuria. She still had a cough. She felt well enough to go home with oxygen and was subsequently discharged. DISCHARGE MEDICATIONS: Please see below. ALLERGIES: Please see below. PHYSICAL EXAMINATION ON DISCHARGE: VITAL SIGNS: Please see below. GENERAL: Comfortable, in no apparent distress HEENT: EOMI, sclera clear NECK: Supple CARDIOVASCULAR EXAMINATION: Regular rate and rhythm RESPIRATORY EXAMINATION: Lungs clear to auscultation bilaterally ABDOMINAL EXAMINATION: Soft, non-tender, normal bowel sounds EXTREMITIES: No pitting edema SKIN: Warm and dry NEUROLOGICAL EXAMINATION: CN 3-12 grossly intact PSYCHIATRIC EXAMINATION: Normal mood and affect LABORATORY DATA: Please see below. IMAGING: CXR Patchy peripheral infiltrates bilaterally.This distribution would be typical for coronavirus. Correlate clinically. PROGNOSIS: Good ACTIVITY: As tolerated. DIET: As tolerated DISCHARGE PLAN: Home DISPOSITION: Home, Self-Care. DISCHARGE INSTRUCTIONS: 1. Follow up with your PCP within 1 week DISCHARGE CONDITION: Stable. Total time spent on discharge planning, discharge summary, and medication reconciliation: 45 minutes. Vital Signs/I&Os Vital Signs Date Time Temp Pulse Resp B/P (MAP) Pulse Ox O2 Delivery O2 Flow Rate FiO2 03/20/20 09:32 131/80 03/20/20 08:00 1.0 03/20/20 08:00 98.0 70 26 95 Nasal Cannula 03/18/20 11:00 40 I&O- Last 24 Hours up to 6 AM 03/20/20 06:00 Intake Total 1560 ml Output Total 2250 ml Balance -690 ml Laboratory Data Labs 24H Laboratory Tests 2 03/20/20 06:02: Nucleated Red Blood Cells % (auto) 0.0, D-Dimer, Quantitative 2443.58H, Anion Gap 7L, Glomerular Filtration Rate > 60.0, Calcium Level 8.8, Phosphorus Level 3.7, Total Bilirubin 0.6, Aspartate Amino Transf (AST/SGOT) 217H, Alanine Aminotransferase (ALT/SGPT) 249H, Alkaline Phosphatase 156H, Lactate Dehydrogenase 528H, Total Creatine Kinase 63, C-Reactive Protein, Quantitative 0.63H, Total Protein 6.0L, Albumin 2.8L, Albumin/Globulin Ratio 0.9L, Triglycerides Level 121, Cholesterol Level 113 CBC/BMP Laboratory Tests 03/20/20 06:02 Microbiology Microbiology 03/13/20 Blood Culture - Final, Complete NO GROWTH AFTER 5 DAYS Discharge Medications Scheduled Aspirin (Aspirin EC) 81 Mg Tab, 81 MG PO DAILY, (Reported) Calcium Carbonate/Vitamin D3 (Calcium 600-Vit D3 200 Tablet) 1 Tab Tab, 1 TAB PO DAILY, (Reported) Hydrochlorothiazide (Hydrochlorothiazide) 25 Mg Tab, 25 MG PO DAILY, (Reported) [place] 3 Polyunsat Fatty Acids (Fish Oil 1,000 mg Softgel) 1,000 Mg Capsule, 1,000 MG PO DAILY, (Reported) Prednisone (Prednisone) 5 Mg Tab.ds.pk, 0 PO ASDIRECTED 6 day dose pack taper Valsartan (Valsartan) 160 Mg Tab, 240 MG PO DAILY, (Reported) Allergies Coded Allergies: lisinopril (Verified Allergy, Unknown, 03/13/20) TRISTAN OCHOA DO Mar 20, 2020 22:20
== END 2020-03-20 13:13 | disposition home or self-care (01) | DRG 177 ==
LOC: M ED 16:09 → EEVIPCON 18:12 → M ED INP 18:12 → ENRESERV 22:04 → M ICU 23:45
PROVIDERS: ADMIT Neuromusculoskeletal Medicine & OMM; ATTEND Internal Medicine
PROC: 3E0333Z Introduction of Anti-inflammatory into Peripheral Vein, Percutaneous Approach (ICD-10-PCS; principal; 2020-03-13)
PROC: XW033E5 Introduction of Remdesivir Anti-infective into Peripheral Vein, Percutaneous Approach, New Technology Group 5 (ICD-10-PCS; 2020-03-14)
PROC: XW033H5 Introduction of Tocilizumab into Peripheral Vein, Percutaneous Approach, New Technology Group 5 (ICD-10-PCS; 2020-03-14)
DX: U07.1 COVID-19 (principal); J12.89 Other viral pneumonia; J96.01 Acute respiratory failure with hypoxia; D68.59 Other primary thrombophilia; I10 Essential (primary) hypertension; K21.9 Gastro-esophageal reflux disease without esophagitis; Z79.82 Long term (current) use of aspirin; Z79.899 Other long term (current) drug therapy; Z88.8 Allergy status to other drugs, medicaments and biological substances

== ENCOUNTER → 2020-10-19 | Outpatient (CLI) | payer OTHER ==
[~2020-10-19] MED LIST changes: +FISH1CAP26 PO; +HYDR-3490 PO; -HYDR25TAB PO; +PRED5PAK2 PO
[2020-10-19 18:15] LABS: ALBUMIN 3.9 GM/DL (3.2-5.2); ALT/SGPT 28 U/L (12-78); BILIRUBIN,TOTAL 0.3 MG/DL (0.2-1.0); BLOOD UREA NITROGEN 17 MG/DL (7-18); CARBON DIOXIDE LEVEL 27 MEQ/L (21-32); CHLORIDE LEVEL 109 MEQ/L (98-107); CHOLESTEROL LEVEL 165 MG/DL (<200); CREATININE FOR GFR 0.59 MG/DL (0.55-1.30); GLOMERULAR FILTRATION RATE > 60.0 (>45); GLUCOSE, FASTING 146 MG/DL (70-100); HDL CHOLESTEROL 39 MG/DL (>40); LDL CHOLESTEROL 47 MG/DL (<100); NON-HDL-C 126 MG/DL; POTASSIUM SERUM 3.5 MEQ/L (3.5-5.1); SODIUM LEVEL 143 MEQ/L (136-145); TOTAL PROTEIN 7.6 GM/DL (6.4-8.2); TRIGLYCERIDES LEVEL 394 MG/DL (<150)
[2020-10-19 18:22] LABS: TOTAL 25(OH) VITAMIN D 64.2 NG/ML (30.0-100.0)
== END ==
LOC: M WUC 13:32
PROVIDERS: ATTEND Nurse Practitioner Family
DX: I10 Essential (primary) hypertension (principal); E55.9 Vitamin D deficiency, unspecified

== ENCOUNTER → 2020-11-01 | Outpatient (CLI) | payer OTHER ==
--- NOTE | 2020-11-01 11:49 | REP ---
INDICATION: IMPINGEMENT SYNDROME OF LEFT SHOULDER. COMPARISON: None. TECHNIQUE: There are five views. FINDINGS: There is demineralization. The acromioclavicular and glenohumeral articulations are unremarkable. There are no calcifications. No fracture or dislocation. IMPRESSION: Mineralization. Otherwise, negative left shoulder plain film study. <Electronically signed by Sammy Wesley > 11/01/20 [id number]
== END ==
LOC: M SOG 09:56
PROVIDERS: ATTEND Orthopaedic Surgery Sports Medicine
DX: M75.42 Impingement syndrome of left shoulder (principal)

== ENCOUNTER → 2020-11-05 | Outpatient (CLI) | payer OTHER ==
[2020-11-05 12:56] LABS: HEMOGLOBIN A1c 5.8 %
[2020-11-05 13:18] LABS: FREE T4 0.98 NG/DL (0.76-1.46); THYROID STIMULATING HORMONE 2.07 uIU/ML (0.358-3.740)
== END ==
LOC: M WUC 10:10
PROVIDERS: ATTEND Nurse Practitioner Family
DX: R73.01 Impaired fasting glucose (principal); E78.2 Mixed hyperlipidemia

== ENCOUNTER 2020-11-24 10:41 | Outpatient (RCR) | payer OTHER | END 2020-11-30 | LOC: M PT 10:41 | PROVIDERS: ATTEND Orthopaedic Surgery Sports Medicine | DX: M75.02 Adhesive capsulitis of left shoulder (principal) ==

== ENCOUNTER 2020-12-08 12:54 | Outpatient (RCR) | payer OTHER | END 2020-12-30 | LOC: M PT 12:54 | PROVIDERS: ATTEND Orthopaedic Surgery Sports Medicine | DX: M75.02 Adhesive capsulitis of left shoulder (principal) ==

== ENCOUNTER → 2021-04-25 | Outpatient (CLI) | payer OTHER ==
[2021-04-25 13:39] LABS: ALT/SGPT 24 U/L (12-78); BILIRUBIN,TOTAL 0.3 MG/DL (0.2-1.0); BLOOD UREA NITROGEN 21 MG/DL (7-18); CALCIUM LEVEL 9.6 MG/DL (8.8-10.2); CARBON DIOXIDE LEVEL 26 MEQ/L (21-32); CHLORIDE LEVEL 101 MEQ/L (98-107); CHOLESTEROL LEVEL 178 MG/DL (<200); CHOLESTEROL RISK RATIO 3.632 (<5); CREATININE FOR GFR 0.67 MG/DL (0.55-1.30); GLOMERULAR FILTRATION RATE > 60.0 (>45); GLUCOSE, FASTING 101 MG/DL (70-100); HDL CHOLESTEROL 49 MG/DL (>40); LDL CHOLESTEROL 105 MG/DL (<100); NON-HDL-C 129 MG/DL; POTASSIUM SERUM 3.8 MEQ/L (3.5-5.1); SODIUM LEVEL 136 MEQ/L (136-145); TOTAL PROTEIN 7.8 GM/DL (6.4-8.2); TRIGLYCERIDES LEVEL 122 MG/DL (<150)
[2021-04-25 14:10] LABS: HEMOGLOBIN A1c 5.7 %
== END ==
LOC: M WUC 10:42
PROVIDERS: ATTEND Nurse Practitioner Family
DX: E78.2 Mixed hyperlipidemia (principal); I10 Essential (primary) hypertension

== ENCOUNTER → 2021-10-28 | Outpatient (REF) | payer OTHER | LOC: M LAB REF 13:04 | PROVIDERS: ATTEND Nurse Practitioner Family | DX: Z01.419 Encounter for gynecological examination (general) (routine) without abnormal findings (principal) ==

== ENCOUNTER → 2021-11-02 | Outpatient (CLI) | payer OTHER ==
[2021-11-02 22:02] LABS: HEMOGLOBIN A1c 5.7 %
== END ==
LOC: M WUC 10:41
PROVIDERS: ATTEND Nurse Practitioner Family
DX: R73.03 Prediabetes (principal)

== ENCOUNTER → 2022-02-08 | Outpatient (CLI) | payer OTHER | LOC: M WHC 14:32 | PROVIDERS: ATTEND Nurse Practitioner Family | DX: Z12.31 Encounter for screening mammogram for malignant neoplasm of breast (principal) ==

== ENCOUNTER → 2022-05-02 | Outpatient (CLI) | payer OTHER ==
[2022-05-02 14:51] LABS: CREATININE, URINE 41.7 MG/DL; MAU/CREAT RATIO 40.7 MCG/MG (0.0-30.0)
[2022-05-02 14:54] LABS: ALBUMIN 3.9 G/DL (3.2-5.2); ALKALINE PHOSPHATASE 156 U/L (46-116); ALT/SGPT 18 U/L (7.0-40); AST/SGOT 22 U/L (<34); BILIRUBIN,TOTAL 0.7 MG/DL (0.3-1.2); BLOOD UREA NITROGEN 12 MG/DL (9-23); CALCIUM LEVEL 9.4 MG/DL (8.3-10.6); CARBON DIOXIDE LEVEL 29 MMOL/L (20-31); CHLORIDE LEVEL 103 MMOL/L (98-107); CHOLESTEROL LEVEL 163 MG/DL (<200); CHOLESTEROL RISK RATIO 3.23 (<5); CREATININE FOR GFR 0.56 MG/DL (0.55-1.30); GLOMERULAR FILTRATION RATE > 60.0 (>45); GLUCOSE, FASTING 129 MG/DL (74-106); HDL CHOLESTEROL 50.4 MG/DL (>40); LDL CHOLESTEROL 93.2 MG/DL (<100); NON-HDL-C 113 MG/DL; POTASSIUM SERUM 4.2 MMOL/L (3.5-5.1); SODIUM LEVEL 139 MMOL/L (136-145); TOTAL 25(OH) VITAMIN D 95.7 NG/ML (20.0-100.0); TOTAL PROTEIN 7.7 G/DL (5.7-8.2); TRIGLYCERIDES LEVEL 97 MG/DL (<150)
[2022-05-02 15:29] LABS: HEMOGLOBIN A1c 5.5 % (4.0-6.0)
== END ==
LOC: M WUC 11:47
PROVIDERS: ATTEND Nurse Practitioner Family
DX: I10 Essential (primary) hypertension (principal); E78.2 Mixed hyperlipidemia; R73.03 Prediabetes; E55.9 Vitamin D deficiency, unspecified

== ENCOUNTER → 2022-10-31 | Outpatient (REF) | payer OTHER | LOC: M LAB REF 17:39 | PROVIDERS: ATTEND Nurse Practitioner Family | DX: Z12.4 Encounter for screening for malignant neoplasm of cervix (principal) | CPT/HCPCS: 87624; G0123 ==

== ENCOUNTER → 2023-02-09 | Outpatient (CLI) | payer OTHER, MEDICARE | LOC: M WHC 11:25 | PROVIDERS: ATTEND Nurse Practitioner Family | DX: Z12.31 Encounter for screening mammogram for malignant neoplasm of breast (principal) ==

== ENCOUNTER 2023-04-04 07:16 | Day surgery (SDC) | payer OTHER, MEDICARE ==
[~2023-04-04] VITALS: Ht 162.6 cm; Wt 67.1 kg
[~2023-04-04 07:16] MED LIST changes: +NS 1,000 ML IV ONE
[2023-04-04] MEDS ORDERED: LIDOCAINE 2% 100MG/5ML SDV (FOR ANES.) As Ordered ONE (08:50)
[2023-04-04] MEDS ORDERED: propofoL 200 MG/20 ML VIAL As Ordered ONE (08:50)
[2023-04-04 09:02] VITALS: TEMP 97.4
[2023-04-04 09:15] VITALS: BP 129/70; O2SAT 95
== END 2023-04-04 09:30 | disposition home or self-care (01) ==
LOC: M OPP 07:16
PROVIDERS: ATTEND Internal Medicine Gastroenterology
DX: Z12.11 Encounter for screening for malignant neoplasm of colon (principal); K64.0 First degree hemorrhoids; Z79.82 Long term (current) use of aspirin; Z79.899 Other long term (current) drug therapy; Z88.8 Allergy status to other drugs, medicaments and biological substances

== ENCOUNTER → 2023-04-30 | Outpatient (CLI) | payer OTHER, MEDICARE ==
[~2023-04-30] MED LIST changes: -NS 1,000 ML IV ONE
[2023-04-30 14:22] LABS: HEMOGLOBIN A1c 5.7 % (4.0-6.0)
[2023-04-30 14:32] LABS: CREATININE, URINE 49.8 MG/DL; MAU/CREAT RATIO 112.4 MCG/MG (0.0-30.0)
[2023-04-30 14:33] LABS: ALBUMIN 3.9 G/DL (3.2-5.2); ALKALINE PHOSPHATASE 137 U/L (46-116); ALT/SGPT 24 U/L (7.0-40); AST/SGOT 18 U/L (<34); BILIRUBIN,TOTAL 0.7 MG/DL (0.3-1.2); BLOOD UREA NITROGEN 16 MG/DL (9-23); CALCIUM LEVEL 9.3 MG/DL (8.3-10.6); CARBON DIOXIDE LEVEL 27 MMOL/L (20-31); CHLORIDE LEVEL 103 MMOL/L (98-107); CHOLESTEROL LEVEL 181 MG/DL (<200); GLOMERULAR FILTRATION RATE > 60.0 (>45); GLUCOSE, FASTING 94 MG/DL (74-106); HDL CHOLESTEROL 48.8 MG/DL (>40); LDL CHOLESTEROL 98.2 MG/DL (<100); NON-HDL-C 132.2 MG/DL; POTASSIUM SERUM 3.8 MMOL/L (3.5-5.1); SODIUM LEVEL 138 MMOL/L (136-145); TRIGLYCERIDES LEVEL 170 MG/DL (<150)
== END ==
LOC: M WUC 10:48
PROVIDERS: ATTEND Nurse Practitioner Family
DX: I10 Essential (primary) hypertension (principal); E78.2 Mixed hyperlipidemia; E55.9 Vitamin D deficiency, unspecified; R73.03 Prediabetes

== ENCOUNTER → 2023-06-11 | Outpatient (CLI) | payer OTHER, MEDICARE ==
[2023-06-11 16:42] LABS: BLOOD UREA NITROGEN 10 MG/DL (9-23); CALCIUM LEVEL 8.7 MG/DL (8.3-10.6); CARBON DIOXIDE LEVEL 26 MMOL/L (20-31); CHLORIDE LEVEL 100 MMOL/L (98-107); CREATININE FOR GFR 0.51 MG/DL (0.55-1.30); GLOMERULAR FILTRATION RATE > 60.0 (>45); GLUCOSE, FASTING 98 MG/DL (74-106); POTASSIUM SERUM 3.7 MMOL/L (3.5-5.1); SODIUM LEVEL 134 MMOL/L (136-145)
== END ==
LOC: M WUC 11:17
PROVIDERS: ATTEND Nurse Practitioner Family
DX: Z01.818 Encounter for other preprocedural examination (principal)

== ENCOUNTER → 2023-11-01 | Outpatient (REF) | payer OTHER, MEDICARE | LOC: M LAB REF 08:19 | PROVIDERS: ATTEND Nurse Practitioner Family | DX: Z12.4 Encounter for screening for malignant neoplasm of cervix (principal) | CPT/HCPCS: 87624; G0123 ==

== ENCOUNTER → 2024-02-12 | Outpatient (CLI) | payer OTHER, MEDICARE ==
[2024-02-12 12:34] LABS: BASO # 0.1 10^3/uL (0.0-0.2); BASO % 0.8 % (0.0-1.0); EOS # 0.2 10^3/uL (0.0-0.5); EOS % 2.7 % (0.0-3.0); HEMATOCRIT 42.4 % (36.0-47.0); HEMOGLOBIN 13.9 g/dl (12.0-15.5); LYMPH # 3.1 10^3/uL (1.5-5.0); LYMPH % 40.1 % (24.0-44.0); MEAN CORPUSCULAR HEMOGLOBIN 29.8 pg (27.0-33.0); MEAN CORPUSCULAR HGB CONC 32.8 g/dl (32.0-36.5); MONO # 0.4 10^3/uL (0.0-0.8); MONO % 5.4 % (2.0-8.0); NEUTROPHILS # 3.9 10^3/uL (1.5-8.5); NEUTROPHILS % 50.6 % (36.0-66.0); PLATELET COUNT, AUTOMATED 308 10^3/uL (150-450); RED BLOOD COUNT 4.66 10^6/uL (4.00-5.40); WHITE BLOOD COUNT 7.7 10^3/uL (4.0-10.0)
[2024-02-12 13:03] LABS: BLOOD UREA NITROGEN 20 MG/DL (9-23); CALCIUM LEVEL 9.6 MG/DL (8.3-10.6); CARBON DIOXIDE LEVEL 28 MMOL/L (20-31); CHLORIDE LEVEL 108 MMOL/L (98-107); CREATININE FOR GFR 0.55 MG/DL (0.55-1.30); GLOMERULAR FILTRATION RATE > 60.0 (>45); GLUCOSE, FASTING 94 MG/DL (74-106); POTASSIUM SERUM 3.9 MMOL/L (3.5-5.1); SODIUM LEVEL 142 MMOL/L (136-145)
== END ==
LOC: M WUC 10:57
PROVIDERS: ATTEND Nurse Practitioner Family
DX: I10 Essential (primary) hypertension (principal)

== ENCOUNTER → 2024-03-10 | Outpatient (CLI) | payer OTHER, MEDICARE | LOC: M WHC 10:59 | PROVIDERS: ATTEND Nurse Practitioner Family | DX: Z12.31 Encounter for screening mammogram for malignant neoplasm of breast (principal) ==

== ENCOUNTER → 2024-04-30 | Outpatient (CLI) | payer OTHER, MEDICARE ==
[2024-04-30 14:33] LABS: BASO # 0.1 10^3/uL (0.0-0.2); BASO % 0.9 % (0.0-1.0); EOS # 0.1 10^3/uL (0.0-0.5); EOS % 1.9 % (0.0-3.0); HEMATOCRIT 42.1 % (36.0-47.0); HEMOGLOBIN 13.8 g/dl (12.0-15.5); MEAN CORPUSCULAR HEMOGLOBIN 29.9 pg (27.0-33.0); MEAN CORPUSCULAR HGB CONC 32.8 g/dl (32.0-36.5); MEAN CORPUSCULAR VOLUME 91.3 fl (80.0-96.0); MONO # 0.3 10^3/uL (0.0-0.8); MONO % 4.6 % (2.0-8.0); NEUTROPHILS # 3.3 10^3/uL (1.5-8.5); NEUTROPHILS % 48.5 % (36.0-66.0); PLATELET COUNT, AUTOMATED 308 10^3/uL (150-450); RED BLOOD COUNT 4.61 10^6/uL (4.00-5.40); WHITE BLOOD COUNT 6.8 10^3/uL (4.0-10.0)
[2024-04-30 15:08] LABS: ALBUMIN 3.8 G/DL (3.2-5.2); ALKALINE PHOSPHATASE 130 U/L (35-104); ALT/SGPT 21 U/L (7.0-40); AST/SGOT 19 U/L (<34); BILIRUBIN,TOTAL 0.7 MG/DL (0.3-1.2); BLOOD UREA NITROGEN 11 MG/DL (9-23); CALCIUM LEVEL 9.1 MG/DL (8.3-10.6); CARBON DIOXIDE LEVEL 26 MMOL/L (20-31); CHLORIDE LEVEL 102 MMOL/L (98-107); CHOLESTEROL LEVEL 171 MG/DL (<200); CHOLESTEROL RISK RATIO 3.33 (<5); CREATININE FOR GFR 0.58 MG/DL (0.55-1.30); GLOMERULAR FILTRATION RATE > 60.0 (>45); GLUCOSE, FASTING 88 MG/DL (74-106); HDL CHOLESTEROL 51.3 MG/DL (>40); LDL CHOLESTEROL 91.3 MG/DL (<100); NON-HDL-C 119.7 MG/DL; POTASSIUM SERUM 4.1 MMOL/L (3.5-5.1); SODIUM LEVEL 143 MMOL/L (136-145); TOTAL PROTEIN 7.5 G/DL (5.7-8.2); TRIGLYCERIDES LEVEL 142 MG/DL (<150)
[2024-04-30 16:09] LABS: HEMOGLOBIN A1c 5.8 % (4.0-6.0)
== END ==
LOC: M WUC 10:58
PROVIDERS: ATTEND Nurse Practitioner Family
DX: I10 Essential (primary) hypertension (principal); E78.2 Mixed hyperlipidemia; R73.03 Prediabetes; E55.9 Vitamin D deficiency, unspecified

== ENCOUNTER → 2025-03-13 | Outpatient (CLI) | payer OTHER, MEDICARE | LOC: M WHC 10:48 | PROVIDERS: ATTEND Nurse Practitioner Family | DX: Z12.31 Encounter for screening mammogram for malignant neoplasm of breast (principal) ==